=== PATIENT | male | born 1965 | race African-American/Black ===

== ENCOUNTER 2020-02-07 15:28 | Inpatient (IN) | payer OTHER ==
[~2020-02-07] VITALS: Ht 182.9 cm; Wt 78.4 kg
[2020-02-07] MEDS ORDERED: ASPIRIN CHEWABLE 81 MG TABLET. PO ONE (16:00)
--- NOTE | 2020-02-07 16:12 | PHYS DOC ---
Past Medical History Past Medical History: No Pertinent History Past Surgical History: Other Additional Past Surgical Histo: hernia surgery x2 Smoking Status: Current Every Day Smoker Additional Information: 1 ppd Alcohol Use: Occasionally General Adult EDM: Chief Complaint: CHEST PAIN HPI: HPI: Patient is a 54-year-old male smoker who presents with 2-day history of hemoptysis. He also complains of sharp right-sided chest pain that radiates to his back. He states it is worse when he takes a deep breath. He denies any fever chills or sweats. He said no nausea or vomiting. He states he has never had hemoptysis before. He states he is not coughing up clots but more dark pink sputum. He states the worst of it seemed to be last night but he is continued to have some today. He has not taken anything at home to alleviate the pain. [] Review of Systems: Review of Systems: Constitutional: Denies fever or chills. [] Eyes: Denies change in visual acuity. [] HENT: Denies nasal congestion or sore throat. [] Respiratory: Per HPI [] Cardiovascular: Denies chest pain or edema. [] GI: Denies abdominal pain, nausea, vomiting, bloody stools or diarrhea. [] : Denies dysuria. [] Musculoskeletal: Denies back pain or joint pain. [] Integument: Denies rash. [] Neurologic: Denies headache, focal weakness or sensory changes. [] Endocrine: Denies polyuria or polydipsia. [] Lymphatic: Denies swollen glands. [] Psychiatric: Denies depression or anxiety. [] Heart Score: Risk Factors: Risk Factors: DM, Current or recent (<one month) smoker, HTN, HLP, family history of CAD, obesity. Risk Scores: Score 0 - 3: 2.5% MACE over next 6 weeks - Discharge Home Score 4 - 6: 20.3% MACE over next 6 weeks - Admit for Clinical Observation Score 7 - 10: 72.7% MACE over next 6 weeks - Early Invasive Strategies Current Medications: Current Medications Medications (Trade) Dose Ordered Sig/Ari Start Time Stop Time Status Last Admin Dose Admin Aspirin (Aspirin Chewable) 324 mg 1X ONCE 02/07/20 16:00 02/07/20 16:01 DC 02/07/20 16:10 324 MG Allergies: Allergies: Allergies Coded Allergies Type Severity Reaction Last Updated Verified Penicillins Allergy Unknown states unknown 02/07/20 Yes Physical Exam: PE: Constitutional: Well developed, well nourished, no acute distress, non-toxic appearance. [] HENT: Normocephalic, atraumatic, bilateral external ears normal, oropharynx moist, no oral exudates, nose normal. [] Eyes: PERRLA, EOMI, conjunctiva normal, no discharge. [] Neck: Normal range of motion, no tenderness, supple, no stridor. [] Cardiovascular:Heart rate regular rhythm, no murmur [] Lungs & Thorax: Bilateral breath sounds clear to auscultation [] Abdomen: Bowel sounds normal, soft, no tenderness, no masses, no pulsatile masses. [] Skin: Warm, dry, no erythema, no rash. [] Back: No tenderness, no CVA tenderness. [] Extremities: No tenderness, no cyanosis, no clubbing, ROM intact, no edema. [] Neurologic: Alert and oriented X 3, normal motor function, normal sensory function, no focal deficits noted. [] Psychologic: Anxious. [] Current Patient Data: Vital Signs: Vital Signs Date Time Temp Pulse Resp B/P (MAP) Pulse Ox O2 Delivery O2 Flow Rate FiO2 02/07/20 15:32 98.7 101 28 118/72 (87) 96 Room Air 98.7 EKG: EKG: EKG: Sinus tachycardia rate of [address]-T changes [] Radiology/Procedures: Radiology/Procedures: []REASON: Hemoptysis PROCEDURE: CT ANGIOGRAPHY CHEST CTA Chest with contrast: Clinical History: Reason: Hemoptysis Axial helical images of the chest were obtained after the administration of 100 cc of IV Omni 350 and timed appropriately and arterial study. Conventional axial reconstruction was performed in addition to coronal, sagittal and bilateral oblique MIP (maximum intensity projection). FINDINGS: There are no filling defects to suggest pulmonary embolism. There is an irregular thick-walled mass in the right upper lobe anterior laterally that measures 9.4 x 4.1 cm. There is diffuse emphysematous changes throughout the peripheral lungs and there is diffuse groundglass opacities in the right middle lobe and there is patchy groundglass opacities in the right upper lobe. There is only mild groundglass opacities in the right lower lobe. There is a large mass lymph node complex involving the right mediastinum just above the right hilum that continues upward along the pelvic trachea on the right. This mass lymph node complex measures 12 cm x 4 cm x 5 cm. There are numerous additional mildly enlarged lymph nodes in the mediastinum and right hilum. The thoracic aorta appears normal. Impression: 1. No evidence of pulmonary embolism. 2. Large thick-walled cavitary lesion in the right upper lobe is suspicious for primary squamous cell carcinoma. 3. Surrounding groundglass opacities and patchy opacities throughout the right upper lobe and some groundglass opacities in the right lower lobe are nonspecific and could be secondary to pulmonary edema or aspiration or lymphangitic spread of cancer. 4. Marked lymphadenopathy with a large right-sided mass lymph node complex which continues from the right hilum into the mediastinum to just below the thoracic inlet on the right. Course & Med Decision Making: Course & Med Decision Making Pertinent Labs and Imaging studies reviewed. (See chart for details) [ED course: Evaluation reveals a 54-year-old male with new onset hemoptysis. CT scan revealed a large cavitary lung mass consistent with squamous cell carcinoma. I spent a long time discussing with the patient and his the findings and that we would need to admit for further diagnostic studies and a plan if this happened to be a cancer. Patient and his voiced understanding will admit to the hospitalist service.] Avinash Disclaimer: Avinash Disclaimer: This electronic medical record was generated, in whole or in part, using a voice recognition dictation system. Departure Departure Impression: Primary Impression: Hemoptysis Additional Impression: Lung mass Disposition: ADMITTED INPATIENT Admitting Physician: HIMS Condition: STABLE Referrals: NO PCP (PCP) Justicifation of Admission Dx: Justifications for Admission: Justification of Admission Dx: Yes Comments: Hemoptysis new lung mass GINA COOPER DO Feb 07, 2020 16:12
[2020-02-07 16:39] LABS: BASO # 0.1 x10^3/uL (0.0-0.2); BASO % 1 % (0-3); EOS # 0.6 x10^3/uL (0.0-0.7); EOS % 6 % (0-3); HEMATOCRIT 33.7 % (39.0-53.0); LYMPH # 1.8 x10^3/uL (1.0-4.8); LYMPH % 18 % (24-48); MEAN CORPUSCULAR HEMOGLOBIN 27 pg (25-35); MEAN CORPUSCULAR HGB CONC 33 g/dL (31-37); MEAN CORPUSCULAR VOLUME 82 fL (79-100); MONO # 0.8 x10^3/uL (0.0-1.1); MONO % 8 % (0-9); NEUT # 6.6 x10^3/uL (1.8-7.7); NEUT % 67 % (31-73); PLATELET COUNT 358 x10^3/uL (140-400); RED BLOOD COUNT 4.11 x10^6/uL (4.30-5.70); RED CELL DISTRIBUTION WIDTH 15.4 % (11.5-14.5); WHITE BLOOD COUNT 9.9 x10^3/uL (4.0-11.0)
[2020-02-07 16:50] LABS: CALCIUM 8.4 mg/dL (8.5-10.1); GFR 93.9; POTASSIUM 4.2 mmol/L (3.5-5.1)
[2020-02-07 16:56] LABS: ALBUMIN 3.2 g/dL (3.4-5.0); ALBUMIN/GLOBULIN RATIO 0.6 (1.0-1.7); TOTAL BILIRUBIN 0.5 mg/dL (0.2-1.0); TOTAL PROTEIN 8.2 g/dL (6.4-8.2)
[2020-02-07] MEDS ORDERED: IOHEXOL 350 MG/ML 100 ML VIAL. IV ONE (17:15)
--- NOTE | 2020-02-07 17:45 | RAD ---
CTA Chest with contrast: Clinical History: Reason: Hemoptysis Axial helical images of the chest were obtained after the administration of 100 cc of IV Omni 350 and timed appropriately and arterial study. Conventional axial reconstruction was performed in addition to coronal, sagittal and bilateral oblique MIP (maximum intensity projection). FINDINGS: There are no filling defects to suggest pulmonary embolism. There is an irregular thick-walled mass in the right upper lobe anterior laterally that measures 9.4 x 4.1 cm. There is diffuse emphysematous changes throughout the peripheral lungs and there is diffuse groundglass opacities in the right middle lobe and there is patchy groundglass opacities in the right upper lobe. There is only mild groundglass opacities in the right lower lobe. There is a large mass lymph node complex involving the right mediastinum just above the right hilum that continues upward along the pelvic trachea on the right. This mass lymph node complex measures 12 cm x 4 cm x 5 cm. There are numerous additional mildly enlarged lymph nodes in the mediastinum and right hilum. The thoracic aorta appears normal. Impression: 1. No evidence of pulmonary embolism. 2. Large thick-walled cavitary lesion in the right upper lobe is suspicious for primary squamous cell carcinoma. 3. Surrounding groundglass opacities and patchy opacities throughout the right upper lobe and some groundglass opacities in the right lower lobe are nonspecific and could be secondary to pulmonary edema or aspiration or lymphangitic spread of cancer. 4. Marked lymphadenopathy with a large right-sided mass lymph node complex which continues from the right hilum into the mediastinum to just below the thoracic inlet on the right. End impression PQRS Compliance Statement: One or more of the following individualized dose reduction techniques were utilized for this examination: 1. Automated exposure control 2. Adjustment of the mA and/or kV according to patient size 3. Use of iterative reconstruction technique Electronically signed by: Vj Blair III, MD (02/07/2020 5:42 PM) [id number]
[2020-02-07 17:46] LABS: PROTHROMBIN TIME PATIENT 13.8 SEC (11.7-14.0)
[2020-02-07] MEDS ORDERED: ONDANSETRON PF 4 MG/2 ML VIAL. IV PRN ×2 (18:15→21:15)
--- NOTE | 2020-02-07 20:15 | NUR ---
The patient, SAMIA GARCIA, 54 y/o, M admitted by CORINNA HERNANDEZ MD, was given written information regarding hospital policies, unit procedures and contact persons. Patient was transferred to room via ED bed, assisted by ED staff member. Valuables were checked and noted. Patient is currently sitting in bed watching TV. Patient was given soup and a box lunch per patient's request at this time. This RN will continue to monitor the patient at this time This RN called and informed Dr. Hernandez of COVID-19 symptom screen result in the admission questions. MD ordered for the patient to be transferred to [address] [place] [address] and tested for COVID-19 at this time. This RN will continue to monitor the patient until he is transferred to [address] [place] [address].
[2020-02-07] MEDS: IV NORMAL SALINE 1000ML BAG 1,000 ML IV SCH (20:32)
[2020-02-07 21:00] VITALS: BP 136/53
[2020-02-07] MEDS ORDERED: ENOXAPARIN 40 MG/0.4 ML SYRINGE. SQ SCH (21:30)
--- NOTE | 2020-02-07 22:30 | NUR ---
Admit from 5th floor room 516 to 6south room 658 to r/o Covid. A/O x 4. Steady gait. VSS. Orientated to room and call light. Reviewed POC to include IVF, Covid Swab pending and Isolation precautions. Verbalized understanding. Resting in bed with call light at hand.
[2020-02-07 23:10] VITALS: BP 114/73
[2020-02-08] MEDS: IV NORMAL SALINE 1000ML BAG 1,000 ML IV SCH ×2 (03:01→09:10)
[2020-02-08] MEDS: fentaNYL PF VIAL 100 MCG/2 ML VIAL IV PRN (03:36)
[2020-02-08 03:57] VITALS: BP 133/67
[2020-02-08 04:08] LABS: BASO # 0.1 x10^3/uL (0.0-0.2); BASO % 1 % (0-3); EOS # 0.7 x10^3/uL (0.0-0.7); EOS % 7 % (0-3); HEMATOCRIT 29.7 % (39.0-53.0); HEMOGLOBIN 9.7 g/dL (13.0-17.5); LYMPH # 1.7 x10^3/uL (1.0-4.8); LYMPH % 18 % (24-48); MEAN CORPUSCULAR HEMOGLOBIN 27 pg (25-35); MEAN CORPUSCULAR HGB CONC 33 g/dL (31-37); MEAN CORPUSCULAR VOLUME 82 fL (79-100); MONO % 10 % (0-9); NEUT # 6.1 x10^3/uL (1.8-7.7); NEUT % 64 % (31-73); PLATELET COUNT 328 x10^3/uL (140-400); RED BLOOD COUNT 3.63 x10^6/uL (4.30-5.70); RED CELL DISTRIBUTION WIDTH 15.5 % (11.5-14.5); WHITE BLOOD COUNT 9.6 x10^3/uL (4.0-11.0)
[2020-02-08 04:33] LABS: ALBUMIN 2.7 g/dL (3.4-5.0); ALBUMIN/GLOBULIN RATIO 0.6 (1.0-1.7); CALCIUM 7.9 mg/dL (8.5-10.1); CREATININE 0.9 mg/dL (0.7-1.3); POTASSIUM 3.9 mmol/L (3.5-5.1); TOTAL BILIRUBIN 0.3 mg/dL (0.2-1.0)
[2020-02-08 07:15] VITALS: BP 121/68
--- NOTE | 2020-02-08 07:23 | EKG ---
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
--- NOTE | 2020-02-08 08:01 | EKG ---
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
--- NOTE | 2020-02-08 08:32 | PDOC1 ---
History and Physical Date of Admission Date of Admission DATE: 02/08/20 TIME: 08:32 Identification/Chief Complaint Chief Complaint Hemoptysis Source Source: Patient History of Present Illness History of Present Illness Mr Sarah is a 54 yo M w/ PMHx smoker 40+ years who came to ED on 02/07/2020 overnight c/o sharp right-sided chest pain, which radiates to the back. He rates it 8/10 and progressive over the past 4 days prior to presentation. He has some associated shortness of breath and cough that is blood specked and now with fiorella hemoptysis. He had no fever, no chills, no sick contacts. With above concerns a CTPA was performed in ED which revealed a large thick wall cavitary lesion in right upper lobe with a pleural based mass as well as right hilar adenopathy extending into the mediastinum. Also noted with extensive ground glass infiltrates in the right lung. There is evidence of extensive emphysema in the right upper lobe and bilateral lungs. BMP within normal limits WBC 9.9, hemoglobin 11, dropped to 9.7 overnight. Platelets 358, albumin 2.7, INR 1.1. EKG sinus tachycardia rate of [address]-T changes COVID 19 swab obtained in ED and admitted for further care. Past Medical History Cardiovascular: No pertinent hx Past Surgical History Past Surgical History: Hernia Repair (x2) Family History Family History: High Cholestrol, Hypertension Social History Smoke: 1 pack per day ALCOHOL: none Drugs: None Current Problem List Problem List Problems Medical Problems: (1) Chest pain Status: Acute Current Medications Current Medications Current Medications Aspirin (Aspirin Chewable) 324 mg 1X ONCE PO Last administered on 02/07/20at 16:10; Start 02/07/20 at 16:00; Stop 02/07/20 at 16:01; Status DC Iohexol (Omnipaque 350 Mg/ml) 100 ml 1X ONCE IV Last administered on 02/07/20at 17:25; Start 02/07/20 at 17:15; Stop 02/07/20 at 17:16; Status DC Ondansetron HCl (Zofran) 4 mg PRN Q8HRS PRN IV NAUSEA/VOMITING; Start 02/07/20 at 18:15; Stop 02/07/20 at 21:14; Status DC Fentanyl Citrate (Fentanyl 2ml Vial) 50 mcg PRN Q1HR PRN IV PAIN Last administered on 02/08/20at 03:36; Start 02/07/20 at 18:15 Sodium Chloride 1,000 ml @ 125 mls/hr Q8H IV Last administered on 02/08/20at 03:01; Start 02/07/20 at 18:05; Stop 02/08/20 at 18:04 Ondansetron HCl (Zofran) 4 mg PRN Q4HRS PRN IV NAUSEA/VOMITING 1ST CHOICE; Start 02/07/20 at 21:15 Guaifenesin (Robitussin Dm) 10 ml PRN Q6HRS PRN PO COUGH; Start 02/07/20 at 21:15 Enoxaparin Sodium (Lovenox 40mg Syringe) 40 mg QHS SQ Last administered on 02/07/20at 23:19; Start 02/07/20 at 21:30 Allergies Allergies: Coded Allergies: Penicillins (Verified Allergy, Intermediate, 02/07/20) ROS General: YES: Fatigue, Malaise; No: Chills, Night Sweats, Appetite, Other PSYCHOLOGICAL ROS: No: Anxiety, Behavioral Disorder, Concentration difficultie, Decreased libido, Depression, Disorientation, Hallucinations, Hostility, Irritablity, Memory difficulties, Mood Swings, Obsessive thoughts, Physical abuse, Sexual abuse, Sleep disturbances, Suicidal ideation, Other Eyes: No Blurry vision, No Decreased vision, No Double vision, No Dry eyes, No Excessive tearing, No Eye Pain, No Itchy Eyes, No Loss of vision, No Ph otophobia, No Scotomata, No Uses contacts, No Uses glasses, No Other HEENT: No: Heacaches, Visual Changes, Hearing change, Nasal congestion, Nasal discharge, Oral lesions, Sinus pain, Sore Throat, Epistaxis, Sneezing, Snoring, Tinnitus, Vertigo, Vocal changes, Other ALLERGY AND IMMUNOLOGY: No: Hives, Insect Bite Sensitivity, Itchy/Watery Eyes, Nasal Congestion, Post Nasal Drip, Seasonal Allergies, Other Hematological and Lymphatic: No: Bleeding Problems, Blood Clots, Blood Transfusions, Brusing, Night Sweats, Pallor, Swollen Lymph Nodes, Other ENDOCRINE: No: Breast Changes, Galactorrhea, Hair Pattern Changes, Hot Flashes, Malaise/lethargy, Mood Swings, Palpitations, Polydipsia/polyuria, Skin Changes, Temperature Intolerance, Unexpected Weight Changes, Other Breast: No New/Changing Breast Lumps, No Nipple changes, No Nipple discharge, No Other Respiratory: YES: Cough, Hemoptysis, Pleuritic Pain, Shortness of breath, SOB with excertion, Sputum Changes, Tachypnea, Wheezing; No: Orthopnea, Stridor, Other Cardiovascular: yes Chest Pain; No Palpitations, No Orthopnea, No Paroxysmal Noc. Dyspnea, No Edema, No Lt Headedness, No Other Gastrointestinal: No Nausea, No Vomiting, No Abdominal Pain, No Diarrhea, No Constipation, No Melena, No Hematochezia, No Other Genitourinary: No Dysuria, No Frequency, No Incontinence, No Hematuria, No Retention, No Discharge, No Urgency, No Pain, No Flank Pain, No Other, No , No , No , No , No , No , No Musculoskeletal: No Gait Disturbance, No Joint Pain, No Joint Stiffness, No Joint Swelling, No Muscle Pain, No Muscular Weakness, No Pain In:, No Swelling In:, No Other Neurological: No Behavorial Changes, No Bowel/Bladder ControlChng, No Confusion, No Dizziness, No Gait Disturbance, No Headaches, No Impaired Coord/balance, No Memory Loss, No Numbness/Tingling, No Seizures, No Speech Problems, No Tremors, No Visual Changes, No Weakness, No Other Skin: No Dry Skin, No Eczema, No Hair Changes, No Lumps, No Mole Changes, No Mottling, No Nail Changes, No Pruritus, No Rash, No Skin Lesion Changes, No Other, No Acne Physical Exam General: Alert, Oriented X3, Cooperative, moderate distress HEENT: Atraumatic, PERRLA, EOMI, Mucous membr. moist/pink Lungs: Other (Diffuse scattered wheezes) Heart: S1S2, RRR, no thrills, no rubs, no gallops, no murmurs Abdomen: Normal bowel sounds, Soft, No tenderness, No hepatosplenomegaly, No masses Rectal Exam: not examined Extremities: No clubbing, No cyanosis, No edema, Normal pulses, No tenderness/swelling Skin: No rashes, No breakdown, No significant lesion Neuro: Normal gait, Normal speech, Strength at 5/5 X4 ext, Normal tone, Sensation intact, Cranial nerves 3-12 NL, Reflexes 2+ Psych/Mental Status: Mental status NL, Mood NL Vitals Vitals Vital Signs Date Time Temp Pulse Resp B/P (MAP) Pulse Ox O2 Delivery O2 Flow Rate FiO2 02/08/20 07:15 98.9 82 20 121/68 (85) 96 Room Air 98.9 Labs Labs Laboratory Tests Test 02/07/20 16:24 02/08/20 03:20 White Blood Count 9.9 x10^3/uL (4.0-11.0) 9.6 x10^3/uL (4.0-11.0) Red Blood Count 4.11 x10^6/uL (4.30-5.70) 3.63 x10^6/uL (4.30-5.70) Hemoglobin 11.0 g/dL (13.0-17.5) 9.7 g/dL (13.0-17.5) Hematocrit 33.7 % (39.0-53.0) 29.7 % (39.0-53.0) Mean Corpuscular Volume 82 fL (79-100) 82 fL (79-100) Mean Corpuscular Hemoglobin 27 pg (25-35) 27 pg (25-35) Mean Corpuscular Hemoglobin Concent 33 g/dL (31-37) 33 g/dL (31-37) Red Cell Distribution Width 15.4 % (11.5-14.5) 15.5 % (11.5-14.5) Platelet Count 358 x10^3/uL (140-400) 328 x10^3/uL (140-400) Neutrophils (%) (Auto) 67 % (31-73) 64 % (31-73) Lymphocytes (%) (Auto) 18 % (24-48) 18 % (24-48) Monocytes (%) (Auto) 8 % (0-9) 10 % (0-9) Eosinophils (%) (Auto) 6 % (0-3) 7 % (0-3) Basophils (%) (Auto) 1 % (0-3) 1 % (0-3) Neutrophils # (Auto) 6.6 x10^3/uL (1.8-7.7) 6.1 x10^3/uL (1.8-7.7) Lymphocytes # (Auto) 1.8 x10^3/uL (1.0-4.8) 1.7 x10^3/uL (1.0-4.8) Monocytes # (Auto) 0.8 x10^3/uL (0.0-1.1) 1.0 x10^3/uL (0.0-1.1) Eosinophils # (Auto) 0.6 x10^3/uL (0.0-0.7) 0.7 x10^3/uL (0.0-0.7) Basophils # (Auto) 0.1 x10^3/uL (0.0-0.2) 0.1 x10^3/uL (0.0-0.2) Prothrombin Time 13.8 SEC (11.7-14.0) Prothromb Time International Ratio 1.1 (0.8-1.1) Sodium Level 140 mmol/L (136-145) 142 mmol/L (136-145) Potassium Level 4.2 mmol/L (3.5-5.1) 3.9 mmol/L (3.5-5.1) Chloride Level 104 mmol/L (98-107) 107 mmol/L (98-107) Carbon Dioxide Level 29 mmol/L (21-32) 28 mmol/L (21-32) Anion Gap 7 (6-14) 7 (6-14) Blood Urea Nitrogen 11 mg/dL (8-26) 11 mg/dL (8-26) Creatinine 1.0 mg/dL (0.7-1.3) 0.9 mg/dL (0.7-1.3) Estimated GFR (Cockcroft-Gault) 93.9 106.0 BUN/Creatinine Ratio 11 (6-20) 12 (6-20) Glucose Level 94 mg/dL (70-99) 121 mg/dL (70-99) Calcium Level 8.4 mg/dL (8.5-10.1) 7.9 mg/dL (8.5-10.1) Total Bilirubin 0.5 mg/dL (0.2-1.0) 0.3 mg/dL (0.2-1.0) Aspartate Amino Transf (AST/SGOT) 15 U/L (15-37) 10 U/L (15-37) Alanine Aminotransferase (ALT/SGPT) 14 U/L (16-63) 11 U/L (16-63) Alkaline Phosphatase 98 U/L (46-116) 85 U/L (46-116) Troponin I Quantitative < 0.017 ng/mL (0.000-0.055) VX-Nhu-Q-Type Natriuretic Peptide 35 pg/mL (0-124) Total Protein 8.2 g/dL (6.4-8.2) 7.0 g/dL (6.4-8.2) Albumin 3.2 g/dL (3.4-5.0) 2.7 g/dL (3.4-5.0) Albumin/Globulin Ratio 0.6 (1.0-1.7) 0.6 (1.0-1.7) Laboratory Tests Test 02/07/20 16:24 02/08/20 03:20 White Blood Count 9.9 x10^3/uL (4.0-11.0) 9.6 x10^3/uL (4.0-11.0) Red Blood Count 4.11 x10^6/uL (4.30-5.70) 3.63 x10^6/uL (4.30-5.70) Hemoglobin 11.0 g/dL (13.0-17.5) 9.7 g/dL (13.0-17.5) Hematocrit 33.7 % (39.0-53.0) 29.7 % (39.0-53.0) Mean Corpuscular Volume 82 fL (79-100) 82 fL (79-100) Mean Corpuscular Hemoglobin 27 pg (25-35) 27 pg (25-35) Mean Corpuscular Hemoglobin Concent 33 g/dL (31-37) 33 g/dL (31-37) Red Cell Distribution Width 15.4 % (11.5-14.5) 15.5 % (11.5-14.5) Platelet Count 358 x10^3/uL (140-400) 328 x10^3/uL (140-400) Neutrophils (%) (Auto) 67 % (31-73) 64 % (31-73) Lymphocytes (%) (Auto) 18 % (24-48) 18 % (24-48) Monocytes (%) (Auto) 8 % (0-9) 10 % (0-9) Eosinophils (%) (Auto) 6 % (0-3) 7 % (0-3) Basophils (%) (Auto) 1 % (0-3) 1 % (0-3) Neutrophils # (Auto) 6.6 x10^3/uL (1.8-7.7) 6.1 x10^3/uL (1.8-7.7) Lymphocytes # (Auto) 1.8 x10^3/uL (1.0-4.8) 1.7 x10^3/uL (1.0-4.8) Monocytes # (Auto) 0.8 x10^3/uL (0.0-1.1) 1.0 x10^3/uL (0.0-1.1) Eosinophils # (Auto) 0.6 x10^3/uL (0.0-0.7) 0.7 x10^3/uL (0.0-0.7) Basophils # (Auto) 0.1 x10^3/uL (0.0-0.2) 0.1 x10^3/uL (0.0-0.2) Prothrombin Time 13.8 SEC (11.7-14.0) Prothromb Time International Ratio 1.1 (0.8-1.1) Sodium Level 140 mmol/L (136-145) 142 mmol/L (136-145) Potassium Level 4.2 mmol/L (3.5-5.1) 3.9 mmol/L (3.5-5.1) Chloride Level 104 mmol/L (98-107) 107 mmol/L (98-107) Carbon Dioxide Level 29 mmol/L (21-32) 28 mmol/L (21-32) Anion Gap 7 (6-14) 7 (6-14) Blood Urea Nitrogen 11 mg/dL (8-26) 11 mg/dL (8-26) Creatinine 1.0 mg/dL (0.7-1.3) 0.9 mg/dL (0.7-1.3) Estimated GFR (Cockcroft-Gault) 93.9 106.0 BUN/Creatinine Ratio 11 (6-20) 12 (6-20) Glucose Level 94 mg/dL (70-99) 121 mg/dL (70-99) Calcium Level 8.4 mg/dL (8.5-10.1) 7.9 mg/dL (8.5-10.1) Total Bilirubin 0.5 mg/dL (0.2-1.0) 0.3 mg/dL (0.2-1.0) Aspartate Amino Transf (AST/SGOT) 15 U/L (15-37) 10 U/L (15-37) Alanine Aminotransferase (ALT/SGPT) 14 U/L (16-63) 11 U/L (16-63) Alkaline Phosphatase 98 U/L (46-116) 85 U/L (46-116) Troponin I Quantitative < 0.017 ng/mL (0.000-0.055) CE-Rlh-H-Type Natriuretic Peptide 35 pg/mL (0-124) Total Protein 8.2 g/dL (6.4-8.2) 7.0 g/dL (6.4-8.2) Albumin 3.2 g/dL (3.4-5.0) 2.7 g/dL (3.4-5.0) Albumin/Globulin Ratio 0.6 (1.0-1.7) 0.6 (1.0-1.7) Images Images CTPA: There are no filling defects to suggest pulmonary embolism. There is an irregular thick-walled mass in the right upper lobe anterior laterally that measures 9.4 x 4.1 cm. There is diffuse emphysematous changes throughout the peripheral lungs and there is diffuse groundglass opacities in the right middle lobe and there is patchy groundglass opacities in the right upper lobe. There is only mild groundglass opacities in the right lower lobe. There is a large mass lymph node complex involving the right mediastinum just above the right hilum that continues upward along the pelvic trachea on the right. This mass lymph node complex measures 12 cm x 4 cm x 5 cm. There are numerous additional mildly enlarged lymph nodes in the mediastinum and right hilum. The thoracic aorta appears normal. Impression: 1. No evidence of pulmonary embolism. 2. Large thick-walled cavitary lesion in the right upper lobe is suspicious for primary squamous cell carcinoma. 3. Surrounding groundglass opacities and patchy opacities throughout the right upper lobe and some groundglass opacities in the right lower lobe are nonspecific and could be secondary to pulmonary edema or aspiration or lymphangitic spread of cancer. 4. Marked lymphadenopathy with a large right-sided mass lymph node complex which continues from the right hilum into the mediastinum to just below the thoracic inlet on the right. VTE Prophylaxis Ordered VTE Prophylaxis Devices: No VTE Pharmacological Prophylaxi: Yes Assessment/Plan Assessment/Plan A/P: Hemoptysis - likely multifactorial with acute bronchitis and RUL cavitary mass concerning for possible malignancy. Consulted pulm, will order inhalers. F/u COVID 19 test Right upper lobe cavitary mass and also pleural based - likely cause of pain, concerning for malignancy. Given his urgency to want to discharge will d/c IR for biopsy and rad onc and heme onc Extensive ground glass infiltrates - potentially stage 3/4 lung cancer. COVID 19 test pending Likely underlying chronic obstructive pulmonary disease - likely 2/2 smoking. Inhalers prn Emphysema on CT - d/w pulm to have CT abdomen/pelvis to assess for lymphadenopathy or metastatic disease to decrease risk on biopsy Anemia - likely related to chronic disease. will check iron studies. F/u CBC Severe protein calorie malnutrition - likely related to above. Director Of Online Education to see FEN - General diet PPX - lovenox, will hold for possible biopsy FULL CODE Dispo - inpatient 2 midnights Justicifation of Admission Dx: Justifications for Admission: Justification of Admission Dx: Yes CORINNA CALDERÓN MD Feb 08, 2020 08:32
[2020-02-08 11:10] VITALS: BP 125/71
--- NOTE | 2020-02-08 11:41 | CONS ---
DATE OF CONSULTATION: PULMONARY CONSULTATION ATTENDING PHYSICIAN: Reynold Hernandez MD REASON FOR CONSULTATION: Hemoptysis, lung mass. HISTORY OF PRESENT ILLNESS: The patient is a 54-year-old male who smoked for 40 years. He came in with sharp right-sided chest pain, which radiates to the back. He has some shortness of breath. He had no cough, fever, no chills, no chest pains. He had having this hemoptysis for the last 3-4 days. The patient was seen in the Emergency Room. CT chest was performed, which was reviewed by me. The patient has a mass large thick wall cavitary in right upper lobe. There is also pleural based mass as well. There is right hilar adenopathy extending into the mediastinum. There is extensive ground glass infiltrates in the right lung. There is evidence of emphysema in the right upper lobe. I have been asked to see him for further evaluation. He has some weight loss. PAST MEDICAL HISTORY: Significant for suspected COPD, everyday smoker for at least 40 years. PAST SURGICAL HISTORY: Hernia surgery. SOCIAL HISTORY: Long history of tobacco use for at least 40 years with evidence of emphysema on CT. MEDICATIONS: Reviewed as listed in the MRAD. REVIEW OF SYSTEMS: Twelve-point system obtained. Pertinent positives discussed in my history of present illness. PHYSICAL EXAMINATION: VITAL SIGNS: Reviewed. Pulse ox 96% on room air. GENERAL: Visual exam done due to COVID-19 suspicion. No obvious respiratory distress. SKIN: No rash. EXTREMITIES: No leg edema. LABORATORY DATA: Reviewed. White cell count 9.6, hemoglobin 9.7 and platelets are 328. BUN and creatinine normal. INR 1.1. IMPRESSION: 1. Hemoptysis along with right upper lobe cavitary mass and also pleural based mass along with right hilar adenopathy with extension into the mediastinum and extensive ground glass infiltrates. Overall, findings are highly suspicious for stage 3 lung cancer, could be stage 4. 2. Suspected underlying chronic obstructive pulmonary disease from 40 years of tobacco use. 3. Chest wall pain secondary to the pleural based mass. 4. Evidence of bullous emphysema in the right upper lobe. RECOMMENDATIONS: 1. I have discussed with Dr. Hernandez and the patient. At this time, a biopsy of the pleural based lesion in the right upper lobe could be safe as it can avoid going into the lung. He does carry risk of pneumothorax due to the bullous emphysema seen in the right upper lobe. 2. We will also obtain a CT abdomen and pelvis to look for any distal lesions, which would be also safer for biopsy. 3. Hold Lovenox. 4. Consult Medical Oncology and Radiation Oncology and they can follow post-biopsy. 5. P.r.n. bronchodilators. 6. Discussed with Dr. Hernandez and will follow along with you. I would also add empiric antibiotic for suspected postobstructive pneumonia. TEODORA COTTER MD DR: ADARSH/rehan JOB#: [id number] / [id number]
[2020-02-08] MEDS ORDERED: IOHEXOL 300 MG/ML 100ML VIAL. IV ONE (11:45)
[2020-02-08] MEDS ORDERED: CONTRAST GIVEN. MC PRN (11:45)
[2020-02-08] MEDS ORDERED: IOHEXOL 240 MG/ML 50ML VIAL. PO ONE (11:45)
[2020-02-08] MEDS: HYDROcodone/APAP 5/325MG 1 TAB TABLET PO PRN ×3 (12:08→23:46)
[2020-02-08] MEDS: guaiFENesin DM 200MG/20MG 10 ML SYRUP PO PRN (12:08)
--- NOTE | 2020-02-08 15:10 | RAD ---
EXAM: CT ABDOMEN/PELVIS WITH CONTRAST. HISTORY: Staging lung cancer. TECHNIQUE: Computed tomography of the abdomen and pelvis was performed after the intravenous administration of iodinated contrast. One or more of the following individualized dose reduction techniques were utilized for this examination: 1. Automated exposure control. 2. Adjustment of the mA and/or kV according to patient size. 3. Use of iterative reconstruction technique. COMPARISON: 02/07/2020. FINDINGS: Lung windows through the visualized portions of the bases reveal groundglass opacities in the right lung base associated with the large right upper lobe lesion. Refer to recent CT. A soft tissue density 4 mm nodule in the right middle lobe on image one is indeterminate.. Bone windows reveal no suspicious lesions. A 5 mm hypoattenuating lesion within the right hepatic lobe on image 22 is indeterminate in this setting. There are no definitively suspicious hepatic lesions. The gallbladder, pancreas, spleen and adrenal glands are unremarkable. A cyst medially in the left kidney measures 5.9 x 4.4 cm and appears benign. The right kidney is unremarkable. There are no pathologically enlarged lymph nodes. The appendix is not inflamed. There is no small bowel obstruction. Sigmoid diverticulosis is moderate. Small umbilical and left inguinal hernias containing only fat. IMPRESSION: 1. One 5 mm hypoattenuating lesion in the right hepatic lobe is indeterminate in this setting but statistically most likely benign. MRI could further characterize, though definitive characterization may not be possible at this small size. 2. No other evidence of metastatic disease inferior to the diaphragm. 3. Small umbilical and left inguinal hernias contain only fat. Electronically signed by: Nichole Chatman MD (02/08/2020 3:07 PM) [id number]
[2020-02-08 15:20] VITALS: BP 121/71
--- NOTE | 2020-02-08 17:16 | NUR ---
SW following. Reviewed chart and discussed with RN. Pt from home, room air, regular diet. No PT/OT needs. Pt on IV Fentanyl. Pt COVID pending. SW to follow as needed.
[2020-02-08 19:00] VITALS: BP 129/70
--- NOTE | 2020-02-08 21:45 | PDOC2 ---
CONSULT Date of Consult Date of Consult DATE: 02/08/20 TIME: 21:24 Reason for Consult Reason for Consult: Lung mass Referring Physician Referring Physician: Dr Hernandez Identification/Chief Complaint Chief Complaint Hemoptysis Problems: (1) Hemoptysis (2) Lung mass Source Source: Chart review, Patient History of Present Illness Reason for Visit: Kahlil Sarah is a 54 year old with hx pertinent for tobacco use who has been admitted for further evaluation and management of hemoptysis. He reports having right sided pleuritic chest pain that started over the past week. He notes that pain worsens with deep breathing and coughing. He also notes hemoptysis with b lood stained sputum in recent days. He denies weight loss, fatigue, headache, vision issues, abdominal pain, back pain. He notes chronic exertional dyspnea. A CTA was performed in ED which revealed a large thick wall cavitary lesion in right upper lobe with a pleural based mass as well as right hilar adenopathy extending into the mediastinum. Also noted with extensive ground glass infiltrates in the right lung. There is evidence of extensive emphysema in the right upper lobe and bilateral lungs. Oncology has been consulted due to concern for cancer Past Medical History Cardiovascular: No pertinent hx Past Surgical History Past Surgical History: Hernia Repair (x2) Family History Family History: High Cholestrol, Hypertension Social History 1 pack per day ALCOHOL: none Drugs: None Current Problem List Problem List Problems Medical Problems: (1) Chest pain Status: Acute (2) Hemoptysis Status: Acute (3) Lung mass Status: Acute Current Medications Current Medications Current Medications Aspirin (Aspirin Chewable) 324 mg 1X ONCE PO Last administered on 02/07/20at 16:10; Start 02/07/20 at 16:00; Stop 02/07/20 at 16:01; Status DC Iohexol (Omnipaque 350 Mg/ml) 100 ml 1X ONCE IV Last administered on 02/07/20at 17:25; Start 02/07/20 at 17:15; Stop 02/07/20 at 17:16; Status DC Ondansetron HCl (Zofran) 4 mg PRN Q8HRS PRN IV NAUSEA/VOMITING; Start 02/07/20 at 18:15; Stop 02/07/20 at 21:14; Status DC Fentanyl Citrate (Fentanyl 2ml Vial) 50 mcg PRN Q1HR PRN IV PAIN Last administered on 02/08/20at 03:36; Start 02/07/20 at 18:15 Sodium Chloride 1,000 ml @ 125 mls/hr Q8H IV Last administered on 02/08/20at 09:10; Start 02/07/20 at 18:05; Stop 02/08/20 at 14:08; Status DC Ondansetron HCl (Zofran) 4 mg PRN Q4HRS PRN IV NAUSEA/VOMITING 1ST CHOICE; Start 02/07/20 at 21:15 Guaifenesin (Robitussin Dm) 10 ml PRN Q6HRS PRN PO COUGH Last administered on 02/08/20at 12:08; Start 02/07/20 at 21:15 Enoxaparin Sodium (Lovenox 40mg Syringe) 40 mg QHS SQ Last administered on 02/07/20at 23:19; Start 02/07/20 at 21:30; Stop 02/08/20 at 11:27; Status DC Iohexol (Omnipaque 240 Mg/ml) 30 ml 1X ONCE PO Last administered on 02/08/20at 11:45; Start 02/08/20 at 11:45; Stop 02/08/20 at 11:46; Status DC Iohexol (Omnipaque 300 Mg/ml) 75 ml 1X ONCE IV Last administered on 02/08/20at 11:45; Start 02/08/20 at 11:45; Stop 02/08/20 at 11:46; Status DC Info (CONTRAST GIVEN -- Rx MONITORING) 1 each PRN DAILY PRN MC SEE COMMENTS; Start 02/08/20 at 11:45; Stop 02/10/20 at 11:44 Acetaminophen/ Hydrocodone Bitart (Lortab 5/325) 1 tab PRN Q4HRS PRN PO PAIN Last administered on 02/08/20at 18:15; Start 02/08/20 at 12:00 Allergies Allergies: Coded Allergies: Penicillins (Verified Allergy, Intermediate, 02/07/20) ROS General: No: Chills, Night Sweats PSYCHOLOGICAL ROS: No: Anxiety, Behavioral Disorder Eyes: No Blurry vision, No Decreased vision HEENT: No: Heacaches, Visual Changes ALLERGY AND IMMUNOLOGY: No: Nasal Congestion, Post Nasal Drip Hematological and Lymphatic: No: Bleeding Problems, Blood Clots ENDOCRINE: No: Malaise/lethargy, Mood Swings Respiratory: YES: Cough, Hemoptysis, Pleuritic Pain, Shortness of breath, Sputum Changes; No: Orthopnea, Stridor, Wheezing Cardiovascular: yes Chest Pain; No Palpitations Gastrointestinal: No Nausea, No Vomiting, No Abdominal Pain, No Diarrhea, No Constipation, No Melena, No Hematochezia Genitourinary: No Dysuria, No Flank Pain Musculoskeletal: No Gait Disturbance, No Joint Stiffness Neurological: Yes Dizziness; No Behavorial Changes Skin: No Dry Skin, No Nail Changes, No Rash Physical Exam General: Alert, Oriented X3 HEENT: Atraumatic, PERRLA Lungs: Clear to auscultation Heart: Regular rate Abdomen: Normal bowel sounds, Soft, No tenderness, No hepatosplenomegaly Extremities: No clubbing, No cyanosis Skin: No rashes, No breakdown Neuro: Normal gait, Normal speech Psych/Mental Status: Mental status NL MUSCULOSKELETAL: No swelling Vitals VITALS Vital Signs Date Time Temp Pulse Resp B/P (MAP) Pulse Ox O2 Delivery O2 Flow Rate FiO2 02/08/20 18:15 18 92 Room Air 02/08/20 15:20 98.1 95 121/71 (88) 98.1 Labs Labs Laboratory Tests Test 02/07/20 16:24 02/07/20 23:25 02/08/20 03:20 White Blood Count 9.9 x10^3/uL (4.0-11.0) 9.6 x10^3/uL (4.0-11.0) Red Blood Count 4.11 x10^6/uL (4.30-5.70) 3.63 x10^6/uL (4.30-5.70) Hemoglobin 11.0 g/dL (13.0-17.5) 9.7 g/dL (13.0-17.5) Hematocrit 33.7 % (39.0-53.0) 29.7 % (39.0-53.0) Mean Corpuscular Volume 82 fL (79-100) 82 fL (79-100) Mean Corpuscular Hemoglobin 27 pg (25-35) 27 pg (25-35) Mean Corpuscular Hemoglobin Concent 33 g/dL (31-37) 33 g/dL (31-37) Red Cell Distribution Width 15.4 % (11.5-14.5) 15.5 % (11.5-14.5) Platelet Count 358 x10^3/uL (140-400) 328 x10^3/uL (140-400) Neutrophils (%) (Auto) 67 % (31-73) 64 % (31-73) Lymphocytes (%) (Auto) 18 % (24-48) 18 % (24-48) Monocytes (%) (Auto) 8 % (0-9) 10 % (0-9) Eosinophils (%) (Auto) 6 % (0-3) 7 % (0-3) Basophils (%) (Auto) 1 % (0-3) 1 % (0-3) Neutrophils # (Auto) 6.6 x10^3/uL (1.8-7.7) 6.1 x10^3/uL (1.8-7.7) Lymphocytes # (Auto) 1.8 x10^3/uL (1.0-4.8) 1.7 x10^3/uL (1.0-4.8) Monocytes # (Auto) 0.8 x10^3/uL (0.0-1.1) 1.0 x10^3/uL (0.0-1.1) Eosinophils # (Auto) 0.6 x10^3/uL (0.0-0.7) 0.7 x10^3/uL (0.0-0.7) Basophils # (Auto) 0.1 x10^3/uL (0.0-0.2) 0.1 x10^3/uL (0.0-0.2) Prothrombin Time 13.8 SEC (11.7-14.0) Prothromb Time International Ratio 1.1 (0.8-1.1) Sodium Level 140 mmol/L (136-145) 142 mmol/L (136-145) Potassium Level 4.2 mmol/L (3.5-5.1) 3.9 mmol/L (3.5-5.1) Chloride Level 104 mmol/L (98-107) 107 mmol/L (98-107) Carbon Dioxide Level 29 mmol/L (21-32) 28 mmol/L (21-32) Anion Gap 7 (6-14) 7 (6-14) Blood Urea Nitrogen 11 mg/dL (8-26) 11 mg/dL (8-26) Creatinine 1.0 mg/dL (0.7-1.3) 0.9 mg/dL (0.7-1.3) Estimated GFR (Cockcroft-Gault) 93.9 106.0 BUN/Creatinine Ratio 11 (6-20) 12 (6-20) Glucose Level 94 mg/dL (70-99) 121 mg/dL (70-99) Calcium Level 8.4 mg/dL (8.5-10.1) 7.9 mg/dL (8.5-10.1) Total Bilirubin 0.5 mg/dL (0.2-1.0) 0.3 mg/dL (0.2-1.0) Aspartate Amino Transf (AST/SGOT) 15 U/L (15-37) 10 U/L (15-37) Alanine Aminotransferase (ALT/SGPT) 14 U/L (16-63) 11 U/L (16-63) Alkaline Phosphatase 98 U/L (46-116) 85 U/L (46-116) Troponin I Quantitative < 0.017 ng/mL (0.000-0.055) FO-Jnm-T-Type Natriuretic Peptide 35 pg/mL (0-124) Total Protein 8.2 g/dL (6.4-8.2) 7.0 g/dL (6.4-8.2) Albumin 3.2 g/dL (3.4-5.0) 2.7 g/dL (3.4-5.0) Albumin/Globulin Ratio 0.6 (1.0-1.7) 0.6 (1.0-1.7) Coronavirus (PCR) Not detected (Not Detected) Laboratory Tests Test 02/07/20 23:25 02/08/20 03:20 Coronavirus (PCR) Not detected (Not Detected) White Blood Count 9.6 x10^3/uL (4.0-11.0) Red Blood Count 3.63 x10^6/uL (4.30-5.70) Hemoglobin 9.7 g/dL (13.0-17.5) Hematocrit 29.7 % (39.0-53.0) Mean Corpuscular Volume 82 fL (79-100) Mean Corpuscular Hemoglobin 27 pg (25-35) Mean Corpuscular Hemoglobin Concent 33 g/dL (31-37) Red Cell Distribution Width 15.5 % (11.5-14.5) Platelet Count 328 x10^3/uL (140-400) Neutrophils (%) (Auto) 64 % (31-73) Lymphocytes (%) (Auto) 18 % (24-48) Monocytes (%) (Auto) 10 % (0-9) Eosinophils (%) (Auto) 7 % (0-3) Basophils (%) (Auto) 1 % (0-3) Neutrophils # (Auto) 6.1 x10^3/uL (1.8-7.7) Lymphocytes # (Auto) 1.7 x10^3/uL (1.0-4.8) Monocytes # (Auto) 1.0 x10^3/uL (0.0-1.1) Eosinophils # (Auto) 0.7 x10^3/uL (0.0-0.7) Basophils # (Auto) 0.1 x10^3/uL (0.0-0.2) Sodium Level 142 mmol/L (136-145) Potassium Level 3.9 mmol/L (3.5-5.1) Chloride Level 107 mmol/L (98-107) Carbon Dioxide Level 28 mmol/L (21-32) Anion Gap 7 (6-14) Blood Urea Nitrogen 11 mg/dL (8-26) Creatinine 0.9 mg/dL (0.7-1.3) Estimated GFR (Cockcroft-Gault) 106.0 BUN/Creatinine Ratio 12 (6-20) Glucose Level 121 mg/dL (70-99) Calcium Level 7.9 mg/dL (8.5-10.1) Total Bilirubin 0.3 mg/dL (0.2-1.0) Aspartate Amino Transf (AST/SGOT) 10 U/L (15-37) Alanine Aminotransferase (ALT/SGPT) 11 U/L (16-63) Alkaline Phosphatase 85 U/L (46-116) Total Protein 7.0 g/dL (6.4-8.2) Albumin 2.7 g/dL (3.4-5.0) Albumin/Globulin Ratio 0.6 (1.0-1.7) Images Images Reviewed CT chest, abdomen and pelvis Assessment/Plan Assessment/Plan Assessment: Right lung mass Hemoptysis Tobacco use Suspected COPD Recommendations: -Reviewed CT CAP. Discussed suspicion for lung cancer with the patient. -Agree with biopsy. As mentioned by Dr Hansen, would consider bx of subpleural lesion -Will follow-up on histology -Agree with Rad-Onc consult -Will plan PET and MRI after histology is obtained -Will arrange follow-up in my office based on results of biopsy Rafael Wiggins MD Hem-Onc Ph [phone] SHERON WIGGINS MD Feb 08, 2020 21:45
[2020-02-08 23:15] VITALS: BP 114/72
[2020-02-09] VITALS (20 sets, daily range): BP systolic 105–140; BP diastolic 65–90
[2020-02-09] MEDS ORDERED: LIDOCAINE WITH 8.4% SOD BICARB 3 ML DISP.SYRIN. ONE (08:52)
[2020-02-09] MEDS ORDERED: MIDAZOLAM HCL/PF 2 MG/2 ML VIAL. ONE (09:01)
[2020-02-09] MEDS ORDERED: fentaNYL PF VIAL 100 MCG/2 ML VIAL ONE (09:01)
[2020-02-09] MEDS ORDERED: LIDOCAINE WITH 8.4% SOD BICARB 3 ML DISP.SYRIN. IJ ONE (09:15)
[2020-02-09] MEDS ORDERED: fentaNYL PF VIAL 100 MCG/2 ML VIAL IV ONE (09:15)
[2020-02-09] MEDS ORDERED: MIDAZOLAM HCL/PF 2 MG/2 ML VIAL. IV ONE (09:15)
--- NOTE | 2020-02-09 09:56 | PDOC ---
[employer] PROGRESS NOTE Date of Service DOS: DATE: 02/09/20 TIME: 09:54 Chief Complaint Chief Complaint A/P: Hemoptysis - likely multifactorial with acute bronchitis and RUL cavitary mass concerning for possible malignancy. Consulted pulm, will order inhalers. F/u COVID 19 test Right upper lobe cavitary mass and also pleural based - likely cause of pain, concerning for malignancy. Given his urgency to want to discharge will d/c IR for biopsy and rad onc and heme onc Extensive ground glass infiltrates - potentially stage 3/4 lung cancer. COVID 19 test pending Likely underlying chronic obstructive pulmonary disease - likely 2/2 smoking. Inhalers prn Emphysema on CT - d/w pulm to have CT abdomen/pelvis to assess for lymphadenopathy or metastatic disease to decrease risk on biopsy Anemia - likely related to chronic disease. will check iron studies. F/u CBC Severe protein calorie malnutrition - likely related to above. 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 An MRI of brain would be appropriate outpatient for further staging if this is a malignancy FEN - General diet PPX - lovenox, will hold for possible biopsy FULL CODE Dispo - inpatient 2 midnights History of Present Illness History of Present Illness Mr Sarah is a 54 yo M w/ PMHx smoker 40+ years who came to ED on 02/07/2020 o vernight c/o sharp right-sided chest pain, which radiates to the back. He rates it 8/10 and progressive over the past 4 days prior to presentation. He has some associated shortness of breath and cough that is blood specked and now with fiorella hemoptysis. He has a 10 pound weight loss, decreased appetite and occasional headaches which are all new. He had no fever, no chills, no sick contacts. With above concerns a CTPA was performed in ED which revealed a large thick wall cavitary lesion in right upper lobe with a pleural based mass as well as right hilar adenopathy extending into the mediastinum. Also noted with extensive ground glass infiltrates in the right lung. There is evidence of extensive emphysema in the right upper lobe and bilateral lungs. BMP within normal limits WBC 9.9, hemoglobin 11, dropped to 9.7 overnight. Platelets 358, albumin 2.7, INR 1.1. EKG sinus tachycardia rate of [address]-T changes COVID 19 swab NEGATIVE. and admitted for further care. Afebrile. With a couple of hemoptysis today. Sputum culture looks like normal respiratory sarita. To IR for pleural-based lesion biopsy today. He does complain of a headache which is new Vitals/I&O Vitals/I&O: Vital Signs Date Time Temp Pulse Resp B/P (MAP) Pulse Ox O2 Delivery O2 Flow Rate FiO2 02/09/20 09:45 92 13 98 Nasal Cannula 2.0 02/09/20 07:00 99.1 135/78 (97) 99.1 I & O 02/08/20 02/08/20 02/09/20 15:00 23:00 07:00 Intake Total 530 ml Output Total 250 ml Balance 280 ml Physical Exam General: Alert, Oriented X3 Heart: Regular rate Abdomen: Normal bowel sounds, Soft, No tenderness, No hepatosplenomegaly Extremities: No clubbing, No cyanosis Skin: No rashes, No breakdown Assessment and Plan Assessmemt and Plan Problems Medical Problems: (1) Chest pain Status: Acute (2) Hemoptysis Status: Acute (3) Lung mass Status: Acute Comment Review of Relevant I have reviewed the following items shahana (where applicable) has been applied. Medications: Current Medications Medications (Trade) Dose Ordered Sig/Ari Route PRN Reason Start Time Stop Time Status Last Admin Dose Admin Iohexol (Omnipaque 240 Mg/ml) 30 ml 1X ONCE PO 02/08/20 11:45 02/08/20 11:46 DC 02/08/20 11:45 Iohexol (Omnipaque 300 Mg/ml) 75 ml 1X ONCE IV 02/08/20 11:45 02/08/20 11:46 DC 02/08/20 11:45 Acetaminophen/ Hydrocodone Bitart (Lortab 5/325) 1 tab PRN Q4HRS PRN PO PAIN 02/08/20 12:00 02/08/20 23:46 Lidocaine HCl (Buffered Lidocaine 1%) 3 ml 1X ONCE IJ 02/09/20 09:15 02/09/20 09:16 DC 02/09/20 09:15 Midazolam HCl (Versed) 2 mg 1X ONCE IV 02/09/20 09:15 02/09/20 09:16 DC 02/09/20 09:15 Fentanyl Citrate (Fentanyl 2ml Vial) 100 mcg 1X ONCE IV 02/09/20 09:15 02/09/20 09:16 DC 02/09/20 09:15 Justicifation of Admission Dx: Justifications for Admission: Justification of Admission Dx: Yes CORINNA CALDERÓN MD Feb 09, 2020 09:56
--- NOTE | 2020-02-09 10:04 | PDOC2 ---
CONSULT Date of Consult Date of Consult DATE: 02/09/20 TIME: 09:30 Reason for Consult Reason for Consult: Lung tumor Referring Physician Referring Physician: Dr Hansen Identification/Chief Complaint Chief Complaint coughing blood Source Source: Chart review, Patient History of Present Illness Reason for Visit: 54-year-old smoker presented to the emergency room with hemoptysis for 2 days, and 4-5days of pressure pain on the right upper chest, worse at night and lying on the right side. CT chest 02/07/2020 showed 9.4 cm right upper lobe thick- walled cavitary mass, 12 cm mediastinal mass just above the right hilum, and numerous enlarged lymph nodes in the mediastinum and right hilum. CT abdomen pelvis on 02/08/2020 showed 0.5 cm indeterminate hypoattenuating lesion in the right hepatic lobe, most likely benign. No other evidence of metastatic disease below the diaphragm. Incidental finding of 5.9 cm left kidney cyst. He had a pulmonology consult. He is scheduled for CT-guided biopsy of the right upper lobe mass later today. He also reports not feeling hungry and 10 pound weight loss. He smokes a pack of cigarettes a day for more than 30 years. Past Medical History Past Medical History None Cardiovascular: No pertinent hx Past Surgical History Past Surgical History: Hernia Repair (bilateral inguinal) Family History Family History: Cancer (Father and paternal aunt had unknown cancer. Mother had COPD.), High Cholestrol, Hypertension Social History Social History He works 3 days at a [employer] and 2 days at [employer] 1 pack per day ALCOHOL: social (beer) Drugs: None Current Problem List Problem List Problems Medical Problems: (1) Chest pain Status: Acute (2) Hemoptysis Status: Acute (3) Lung mass Status: Acute Current Medications Current Medications None as outpatient. Current Medications Aspirin (Aspirin Chewable) 324 mg 1X ONCE PO Last administered on 02/07/20at 16:10; Start 02/07/20 at 16:00; Stop 02/07/20 at 16:01; Status DC Iohexol (Omnipaque 350 Mg/ml) 100 ml 1X ONCE IV Last administered on 02/07/20at 17:25; Start 02/07/20 at 17:15; Stop 02/07/20 at 17:16; Status DC Ondansetron HCl (Zofran) 4 mg PRN Q8HRS PRN IV NAUSEA/VOMITING; Start 02/07/20 at 18:15; Stop 02/07/20 at 21:14; Status DC Fentanyl Citrate (Fentanyl 2ml Vial) 50 mcg PRN Q1HR PRN IV PAIN Last administered on 02/08/20at 03:36; Start 02/07/20 at 18:15 Sodium Chloride 1,000 ml @ 125 mls/hr Q8H IV Last administered on 02/08/20at 09:10; Start 02/07/20 at 18:05; Stop 02/08/20 at 14:08; Status DC Ondansetron HCl (Zofran) 4 mg PRN Q4HRS PRN IV NAUSEA/VOMITING 1ST CHOICE; Start 02/07/20 at 21:15 Guaifenesin (Robitussin Dm) 10 ml PRN Q6HRS PRN PO COUGH Last administered on 02/08/20at 12:08; Start 02/07/20 at 21:15 Enoxaparin Sodium (Lovenox 40mg Syringe) 40 mg QHS SQ Last administered on 02/07/20at 23:19; Start 02/07/20 at 21:30; Stop 02/08/20 at 11:27; Status DC Iohexol (Omnipaque 240 Mg/ml) 30 ml 1X ONCE PO Last administered on 02/08/20at 11:45; Start 02/08/20 at 11:45; Stop 02/08/20 at 11:46; Status DC Iohexol (Omnipaque 300 Mg/ml) 75 ml 1X ONCE IV Last administered on 02/08/20at 11:45; Start 02/08/20 at 11:45; Stop 02/08/20 at 11:46; Status DC Info (CONTRAST GIVEN -- Rx MONITORING) 1 each PRN DAILY PRN MC SEE COMMENTS; Start 02/08/20 at 11:45; Stop 02/10/20 at 11:44 Acetaminophen/ Hydrocodone Bitart (Lortab 5/325) 1 tab PRN Q4HRS PRN PO PAIN Last administered on 02/08/20at 23:46; Start 02/08/20 at 12:00 Lidocaine HCl (Buffered Lidocaine 1%) 3 ml STK-MED ONCE .ROUTE ; Start 02/09/20 at 08:52; Stop 02/09/20 at 08:53; Status DC Midazolam HCl (Versed) 2 mg STK-MED ONCE .ROUTE ; Start 02/09/20 at 09:01; Stop 02/09/20 at 09:01; Status DC Fentanyl Citrate (Fentanyl 2ml Vial) 100 mcg STK-MED ONCE .ROUTE ; Start 02/09/20 at 09:01; Stop 02/09/20 at 09:01; Status DC Lidocaine HCl (Buffered Lidocaine 1%) 3 ml 1X ONCE IJ ; Start 02/09/20 at 09:15; Stop 02/09/20 at 09:16; Status DC Midazolam HCl (Versed) 2 mg 1X ONCE IV ; Start 02/09/20 at 09:15; Stop 02/09/20 at 09:16; Status DC Fentanyl Citrate (Fentanyl 2ml Vial) 100 mcg 1X ONCE IV ; Start 02/09/20 at 09:15; Stop 02/09/20 at 09:16; Status DC Allergies Allergies: Coded Allergies: Penicillins (Verified Allergy, Intermediate, 02/07/20) ROS General: YES: Appetite (decreased) HEENT: YES: Heacaches (new onset episodic headache, associated with 'fleeting vision of shadows'. No diploplia) Respiratory: YES: Cough, Hemoptysis, Shortness of breath Cardiovascular: yes Chest Pain Physical Exam General: Alert, Oriented X3, Cooperative, No acute distress HEENT: Atraumatic, PERRLA, EOMI, Mucous membr. moist/pink, Other (Neck without palpable adenopathy.) Lungs: Other (No breathsound on right apex. No wheezing or crackles on other lung garcia.) Heart: Regular rate, Normal S1, Normal S2, No murmurs Abdomen: Normal bowel sounds, Soft, No tenderness, No hepatosplenomegaly, Other (umbilical hernia) Extremities: No clubbing, No cyanosis, No edema Skin: No rashes, No significant lesion Neuro: Normal speech, Strength at 5/5 X4 ext, Normal tone, Cranial nerves 3-12 NL, Reflexes 2+ Psych/Mental Status: Mental status NL, Mood NL MUSCULOSKELETAL: Full range of motion without pain Vitals VITALS Vital Signs Date Time Temp Pulse Resp B/P (MAP) Pulse Ox O2 Delivery O2 Flow Rate FiO2 02/09/20 08:54 Room Air 02/09/20 07:00 99.1 94 18 135/78 (97) 96 99.1 Labs Labs Laboratory Tests Test 02/07/20 16:24 02/07/20 23:25 02/08/20 03:20 White Blood Count 9.9 x10^3/uL (4.0-11.0) 9.6 x10^3/uL (4.0-11.0) Red Blood Count 4.11 x10^6/uL (4.30-5.70) 3.63 x10^6/uL (4.30-5.70) Hemoglobin 11.0 g/dL (13.0-17.5) 9.7 g/dL (13.0-17.5) Hematocrit 33.7 % (39.0-53.0) 29.7 % (39.0-53.0) Mean Corpuscular Volume 82 fL (79-100) 82 fL (79-100) Mean Corpuscular Hemoglobin 27 pg (25-35) 27 pg (25-35) Mean Corpuscular Hemoglobin Concent 33 g/dL (31-37) 33 g/dL (31-37) Red Cell Distribution Width 15.4 % (11.5-14.5) 15.5 % (11.5-14.5) Platelet Count 358 x10^3/uL (140-400) 328 x10^3/uL (140-400) Neutrophils (%) (Auto) 67 % (31-73) 64 % (31-73) Lymphocytes (%) (Auto) 18 % (24-48) 18 % (24-48) Monocytes (%) (Auto) 8 % (0-9) 10 % (0-9) Eosinophils (%) (Auto) 6 % (0-3) 7 % (0-3) Basophils (%) (Auto) 1 % (0-3) 1 % (0-3) Neutrophils # (Auto) 6.6 x10^3/uL (1.8-7.7) 6.1 x10^3/uL (1.8-7.7) Lymphocytes # (Auto) 1.8 x10^3/uL (1.0-4.8) 1.7 x10^3/uL (1.0-4.8) Monocytes # (Auto) 0.8 x10^3/uL (0.0-1.1) 1.0 x10^3/uL (0.0-1.1) Eosinophils # (Auto) 0.6 x10^3/uL (0.0-0.7) 0.7 x10^3/uL (0.0-0.7) Basophils # (Auto) 0.1 x10^3/uL (0.0-0.2) 0.1 x10^3/uL (0.0-0.2) Prothrombin Time 13.8 SEC (11.7-14.0) Prothromb Time International Ratio 1.1 (0.8-1.1) Sodium Level 140 mmol/L (136-145) 142 mmol/L (136-145) Potassium Level 4.2 mmol/L (3.5-5.1) 3.9 mmol/L (3.5-5.1) Chloride Level 104 mmol/L (98-107) 107 mmol/L (98-107) Carbon Dioxide Level 29 mmol/L (21-32) 28 mmol/L (21-32) Anion Gap 7 (6-14) 7 (6-14) Blood Urea Nitrogen 11 mg/dL (8-26) 11 mg/dL (8-26) Creatinine 1.0 mg/dL (0.7-1.3) 0.9 mg/dL (0.7-1.3) Estimated GFR (Cockcroft-Gault) 93.9 106.0 BUN/Creatinine Ratio 11 (6-20) 12 (6-20) Glucose Level 94 mg/dL (70-99) 121 mg/dL (70-99) Calcium Level 8.4 mg/dL (8.5-10.1) 7.9 mg/dL (8.5-10.1) Total Bilirubin 0.5 mg/dL (0.2-1.0) 0.3 mg/dL (0.2-1.0) Aspartate Amino Transf (AST/SGOT) 15 U/L (15-37) 10 U/L (15-37) Alanine Aminotransferase (ALT/SGPT) 14 U/L (16-63) 11 U/L (16-63) Alkaline Phosphatase 98 U/L (46-116) 85 U/L (46-116) Troponin I Quantitative < 0.017 ng/mL (0.000-0.055) HY-Qih-D-Type Natriuretic Peptide 35 pg/mL (0-124) Total Protein 8.2 g/dL (6.4-8.2) 7.0 g/dL (6.4-8.2) Albumin 3.2 g/dL (3.4-5.0) 2.7 g/dL (3.4-5.0) Albumin/Globulin Ratio 0.6 (1.0-1.7) 0.6 (1.0-1.7) Coronavirus (PCR) Not detected (Not Detected) Assessment/Plan Assessment/Plan 54-year-old -[place] Citizen male who is a smoker presented with large right upper lobe mass and bulky mediastinal lymphadenopathy, concerning for pulmonary malignancy. He is scheduled for CT-guided biopsy of the right upper lobe mass later today. Plan: We discussed that the radiographic findings are most consistent with a primary pulmonary malignancy. We discussed the necessity of tissue diagnosis with CT- guided biopsy. Assuming that this is a pulmonary malignancy, I would consider MRI brain for further staging, especially in this patient with new onset headache. He agreed with further testing as discussed. He agreed to follow-up in 1 week for biopsy results as well as further management. ROBBIN VASQUEZ MD Feb 09, 2020 10:04
--- NOTE | 2020-02-09 10:15 | NUR ---
Per Dr. Hansen no need to reswab pt for COVID.
--- NOTE | 2020-02-09 10:59 | PDOC ---
PULMONARY PROGRESS NOTES DATE: 02/09/20 TIME: 10:56 Subjective NO SOA S/P BX Vitals Vital Signs Date Time Temp Pulse Resp B/P (MAP) Pulse Ox O2 Delivery O2 Flow Rate FiO2 02/09/20 09:45 92 13 98 Nasal Cannula 2.0 02/09/20 07:00 99.1 135/78 (97) 99.1 General: Alert, No acute distress Lungs: Clear Cardiovascular: S1 Abdomen: Soft Neuro Exam: Alert Extremities: No Edema Skin: Warm Labs Laboratory Tests Test 02/07/20 16:24 02/07/20 23:25 02/08/20 03:20 White Blood Count 9.9 x10^3/uL (4.0-11.0) 9.6 x10^3/uL (4.0-11.0) Red Blood Count 4.11 x10^6/uL (4.30-5.70) 3.63 x10^6/uL (4.30-5.70) Hemoglobin 11.0 g/dL (13.0-17.5) 9.7 g/dL (13.0-17.5) Hematocrit 33.7 % (39.0-53.0) 29.7 % (39.0-53.0) Mean Corpuscular Volume 82 fL (79-100) 82 fL (79-100) Mean Corpuscular Hemoglobin 27 pg (25-35) 27 pg (25-35) Mean Corpuscular Hemoglobin Concent 33 g/dL (31-37) 33 g/dL (31-37) Red Cell Distribution Width 15.4 % (11.5-14.5) 15.5 % (11.5-14.5) Platelet Count 358 x10^3/uL (140-400) 328 x10^3/uL (140-400) Neutrophils (%) (Auto) 67 % (31-73) 64 % (31-73) Lymphocytes (%) (Auto) 18 % (24-48) 18 % (24-48) Monocytes (%) (Auto) 8 % (0-9) 10 % (0-9) Eosinophils (%) (Auto) 6 % (0-3) 7 % (0-3) Basophils (%) (Auto) 1 % (0-3) 1 % (0-3) Neutrophils # (Auto) 6.6 x10^3/uL (1.8-7.7) 6.1 x10^3/uL (1.8-7.7) Lymphocytes # (Auto) 1.8 x10^3/uL (1.0-4.8) 1.7 x10^3/uL (1.0-4.8) Monocytes # (Auto) 0.8 x10^3/uL (0.0-1.1) 1.0 x10^3/uL (0.0-1.1) Eosinophils # (Auto) 0.6 x10^3/uL (0.0-0.7) 0.7 x10^3/uL (0.0-0.7) Basophils # (Auto) 0.1 x10^3/uL (0.0-0.2) 0.1 x10^3/uL (0.0-0.2) Prothrombin Time 13.8 SEC (11.7-14.0) Prothromb Time International Ratio 1.1 (0.8-1.1) Sodium Level 140 mmol/L (136-145) 142 mmol/L (136-145) Potassium Level 4.2 mmol/L (3.5-5.1) 3.9 mmol/L (3.5-5.1) Chloride Level 104 mmol/L (98-107) 107 mmol/L (98-107) Carbon Dioxide Level 29 mmol/L (21-32) 28 mmol/L (21-32) Anion Gap 7 (6-14) 7 (6-14) Blood Urea Nitrogen 11 mg/dL (8-26) 11 mg/dL (8-26) Creatinine 1.0 mg/dL (0.7-1.3) 0.9 mg/dL (0.7-1.3) Estimated GFR (Cockcroft-Gault) 93.9 106.0 BUN/Creatinine Ratio 11 (6-20) 12 (6-20) Glucose Level 94 mg/dL (70-99) 121 mg/dL (70-99) Calcium Level 8.4 mg/dL (8.5-10.1) 7.9 mg/dL (8.5-10.1) Total Bilirubin 0.5 mg/dL (0.2-1.0) 0.3 mg/dL (0.2-1.0) Aspartate Amino Transf (AST/SGOT) 15 U/L (15-37) 10 U/L (15-37) Alanine Aminotransferase (ALT/SGPT) 14 U/L (16-63) 11 U/L (16-63) Alkaline Phosphatase 98 U/L (46-116) 85 U/L (46-116) Troponin I Quantitative < 0.017 ng/mL (0.000-0.055) XU-Ach-B-Type Natriuretic Peptide 35 pg/mL (0-124) Total Protein 8.2 g/dL (6.4-8.2) 7.0 g/dL (6.4-8.2) Albumin 3.2 g/dL (3.4-5.0) 2.7 g/dL (3.4-5.0) Albumin/Globulin Ratio 0.6 (1.0-1.7) 0.6 (1.0-1.7) Coronavirus (PCR) Not detected (Not Detected) Impression . 1. Hemoptysis along with right upper lobe cavitary mass and also pleural based mass along with right hilar adenopathy with extension into the mediastinum and extensive ground glass infiltrates. Overall, findings are highly suspicious for stage 3 lung cancer, could be stage 4. 2. Suspected underlying chronic obstructive pulmonary disease from 40 years of tobacco use. 3. Chest wall pain secondary to the pleural based mass. 4. Evidence of bullous emphysema in the right upper lobe. Plan . 1. . S/P biopsy of the pleural based lesion in the right upper lobe 2. CT abdomen and pelvis WITH NO distal lesions, 3. Can resume Lovenox. 4. Medical Oncology and Radiation Oncology rec 5. P.r.n. bronchodilators. 6. Discussed with RN and will follow along with you. TEODORA COTTER MD Feb 09, 2020 10:59
--- NOTE | 2020-02-09 12:20 | RAD ---
02/09/2020 8:01 AM Procedure: CT guided biopsy right upper lung mass Clinical Indication: cavitary lung mass Discussion: The procedure was explained in its entirety to the patient or the patients designated sales representative [employer] by a member of the treatment team, including a discussion of the risks, benefits and commonly accepted alternatives to the procedure, as well as the expected consequences of no therapy whatsoever. Discussion of the risks included, but was not limited to, those that are most frequent and those that are rare but possibly severe or life-threatening, as well as the possibility of unforeseen complications. All elements of maximal sterile barrier technique including the use of a cap, mask, sterile gown, sterile gloves, large sterile sheet, appropriate hand hygiene, and 2% chlorhexidine for cutaneous antisepsis (or acceptable alternative antiseptic per current guidelines) were followed for this procedure. The procedures performed under conscious sedation including continuous cardiopulmonary monitoring via dedicated sedation nurse [id number] sedation time: 15 minutes The anterior chest was prepped and draped using sterile barrier technique. CT demonstrates cavitary mass in the right upper lobe, grossly unchanged from comparison study. 1% lidocaine was administered for local anesthesia. Under intermittent CT guidance is a 17-gauge needle was advanced to mass. Core samples were obtained. [place] removed. Manual pressure was held. Repeat imaging demonstrates no pneumothorax or other immediate complication. Sterile dressings were applied. IMPRESSION: CT-guided biopsy, cavitary right upper lung mass. PQRS Compliance Statement: One or more of the following individualized dose reduction techniques were utilized for this examination: 1. Automated exposure control 2. Adjustment of the mA and/or kV according to patient size 3. Use of iterative reconstruction technique
[2020-02-09] MEDS: HYDROcodone/APAP 5/325MG 1 TAB TABLET PO PRN (14:16)
[2020-02-09] MEDS: fentaNYL PF VIAL 100 MCG/2 ML VIAL IV PRN (16:48)
[2020-02-09] MEDS: IPRATRPIUM/ALBUTEROL 0.5/2.5MG 3 ML NEBU. NEB SCH (19:40)
[2020-02-09] MEDS: guaiFENesin DM 200MG/20MG 10 ML SYRUP PO PRN (21:00)
[2020-02-10 03:00] VITALS: BP 119/66
[2020-02-10 07:00] VITALS: BP 147/77
[2020-02-10] MEDS: IPRATRPIUM/ALBUTEROL 0.5/2.5MG 3 ML NEBU. NEB SCH ×4 (07:06→20:35)
[2020-02-10] MEDS: HYDROcodone/APAP 5/325MG 1 TAB TABLET PO PRN (08:59)
[2020-02-10] MEDS: fentaNYL PF VIAL 100 MCG/2 ML VIAL IV PRN (08:59)
[2020-02-10] MEDS ORDERED: HYDROmorphone 4 MG TABLET PO PRN (09:30)
--- NOTE | 2020-02-10 10:39 | NUR ---
SW following. Reviewed chart and discussed with RN. Pt is a possible discharge home today self-care. No SW needs at discharge.
[2020-02-10 11:00] VITALS: BP 125/67
--- NOTE | 2020-02-10 11:19 | PDOC ---
PULMONARY PROGRESS NOTES DATE: 02/10/20 TIME: 11:15 Subjective NO SOA S/P BX Comments still with hemoptysis Vitals Vital Signs Date Time Temp Pulse Resp B/P (MAP) Pulse Ox O2 Delivery O2 Flow Rate FiO2 02/10/20 11:14 Room Air 02/10/20 09:59 17 02/10/20 07:06 99 02/10/20 07:00 99.0 104 147/77 (100) 99.0 02/10/20 03:00 2.0 General: Alert, No acute distress Lungs: Clear Cardiovascular: S1 Abdomen: Soft Neuro Exam: Alert Extremities: No Edema Skin: Warm Impression . 1. Hemoptysis along with right upper lobe cavitary mass and also pleural based mass along with right hilar adenopathy with extension into the mediastinum and extensive ground glass infiltrates. Overall, findings are highly suspicious for stage 3 lung cancer, could be stage 4. 2. Suspected underlying chronic obstructive pulmonary disease from 40 years of tobacco use. 3. Chest wall pain secondary to the pleural based mass. 4. Evidence of bullous emphysema in the right upper lobe. Plan . 1. . S/P biopsy of the pleural based lesion in the right upper lobe . d/w pathology blood clot and tiny specimen, few atypical cells, special stains P. If non diagnostic, will need Bronch in am 2. CT abdomen and pelvis WITH NO distal lesions, 3. Can resume Lovenox. 4. Medical Oncology and Radiation Oncology rec 5. P.r.n. bronchodilators. 6. Discussed with RN and will follow along with you. TEODORA COTTER MD Feb 10, 2020 11:19
--- NOTE | 2020-02-10 12:04 | PDOC ---
[facility] PROGRESS NOTE Date of Service DOS: DATE: 02/10/20 TIME: 12:04 Chief Complaint Chief Complaint A/P: Hemoptysis - likely multifactorial with acute bronchitis and RUL cavitary mass concerning for possible malignancy. Consulted pulm, will order inhalers. F/u COVID 19 test Right upper lobe cavitary mass and also pleural based - likely cause of pain, concerning for malignancy. Given his urgency to want to discharge will d/c IR for biopsy and rad onc and heme onc Extensive ground glass infiltrates - potentially stage 3/4 lung cancer. COVID 19 test pending Likely underlying chronic obstructive pulmonary disease - likely 2/2 smoking. Inhalers prn Emphysema on CT - d/w pulm to have CT abdomen/pelvis to assess for lymphadenopathy or metastatic disease to decrease risk on biopsy Anemia - likely related to chronic disease. will check iron studies. F/u CBC Severe protein calorie malnutrition - likely related to above. Demand Planning Manager to see Headache - new onset. An MRI of brain would be appropriate outpatient for further staging if this is a malignancy FEN - General diet PPX - lovenox, will hold for possible biopsy FULL CODE Dispo - inpatient 2 midnights History of Present Illness History of Present Illness Mr Sarah is a 54 yo M w/ PMHx smoker 40+ years who came to ED on 02/07/2020 o vernight c/o sharp right-sided chest pain, which radiates to the back. He rates it 8/10 and progressive over the past 4 days prior to presentation. He has some associated shortness of breath and cough that is blood specked and now with fiorella hemoptysis. He has a 10 pound weight loss, decreased appetite and occasional headaches which are all new. He had no fever, no chills, no sick contacts. With above concerns a CTPA was performed in ED which revealed a large thick wall cavitary lesion in right upper lobe with a pleural based mass as well as right hilar adenopathy extending into the mediastinum. Also noted with extensive ground glass infiltrates in the right lung. There is evidence of extensive emphysema in the right upper lobe and bilateral lungs. BMP within normal limits WBC 9.9, hemoglobin 11, dropped to 9.7 overnight. Platelets 358, albumin 2.7, INR 1.1. EKG sinus tachycardia rate of [address]-T changes COVID 19 swab NEGATIVE. and admitted for further care. 02/08: Afebrile. With a couple of hemoptysis today. Sputum culture looks like normal respiratory sarita. To IR for pleural-based lesion biopsy today. He does complain of a headache which is new Afebrile. Still having significant hemoptysis approximately 1/2 cup. His pain is not well controlled with current pain regimen. I discussed addition of a fentanyl patch as this is likely cancer diagnosis. He is amenable to that. He is also amenable to likely bronchoscopy in a.m. with pulmonology tentatively. Vitals/I&O Vitals/I&O: Vital Signs Date Time Temp Pulse Resp B/P (MAP) Pulse Ox O2 Delivery O2 Flow Rate FiO2 02/10/20 11:14 Room Air 02/10/20 11:00 98.5 100 20 125/67 (86) 99 98.5 02/10/20 08:00 2.0 I & O 02/09/20 02/09/20 02/10/20 15:00 23:00 07:00 Intake Total 0 ml 300 ml Output Total 300 ml 400 ml 300 ml Balance -300 ml -100 ml -300 ml Physical Exam General: Alert, Oriented X3, Cooperative, No acute distress Heart: Regular rate, Normal S1, Normal S2, No murmurs Lungs: Clear Abdomen: Normal bowel sounds, Soft, No tenderness, No hepatosplenomegaly, Other (umbilical hernia) Extremities: No clubbing, No cyanosis, No edema Skin: No rashes, No significant lesion Assessment and Plan Assessmemt and Plan Problems Medical Problems: (1) Chest pain Status: Acute (2) Hemoptysis Status: Acute (3) Lung mass Status: Acute Comment Review of Relevant I have reviewed the following items shahana (where applicable) has been applied. Medications: Current Medications Medications (Trade) Dose Ordered Sig/Ari Route PRN Reason Start Time Stop Time Status Last Admin Dose Admin Albuterol/ Ipratropium (Duoneb) 3 ml RTQID NEB 02/09/20 17:00 02/10/20 11:14 Justicifation of Admission Dx: Justifications for Admission: Justification of Admission Dx: Yes CORINNA CALDERÓN MD Feb 10, 2020 12:04
[2020-02-10] MEDS ORDERED: fentaNYL 12MCG/HR PATCH 1 PATCH PATCH.TD72 TD SCH (13:00)
[2020-02-10 15:00] VITALS: BP 111/73
[2020-02-10 19:00] VITALS: BP 94/71
[2020-02-10] MEDS: guaiFENesin DM 200MG/20MG 10 ML SYRUP PO PRN (20:56)
[2020-02-10 22:36] VITALS: BP 106/79
[2020-02-11 03:01] VITALS: BP 106/70
[2020-02-11] MEDS: IPRATRPIUM/ALBUTEROL 0.5/2.5MG 3 ML NEBU. NEB SCH ×3 (07:00→15:42)
--- NOTE | 2020-02-11 07:24 | PDOC ---
[facility] PROGRESS NOTE Date of Service DOS: DATE: 02/11/20 TIME: 07:24 Chief Complaint Chief Complaint A/P: Hemoptysis - likely multifactorial with acute bronchitis and RUL cavitary mass concerning for possible malignancy. Consulted pulm, will order inhalers. F/u COVID 19 test was negative Right upper lobe cavitary mass and also pleural based - likely cause of pain, concerning for malignancy. s/p IR for biopsy and rad onc and heme onc Extensive ground glass infiltrates - potentially stage 3/4 lung cancer. COVID 19 test negative Likely underlying chronic obstructive pulmonary disease - likely 2/2 smoking. Inhalers prn Emphysema on CT - d/w pulm to have CT abdomen/pelvis to assess for lymphadenopathy or metastatic disease to decrease risk on biopsy Anemia - likely related to chronic disease. will check iron studies. F/u CBC Severe protein calorie malnutrition - likely related to above. 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 An MRI of brain would be appropriate outpatient for further staging if this is a malignancy Hemoptysis along with right upper lobe cavitary mass and also pleural based mass along with right hilar adenopathy with extension into the mediastinum and extensive ground glass infiltrates. Overall, findings are highly suspicious for stage 3 lung cancer, could be stage 4. Plan: S/P biopsy of the pleural based lesion in the right upper lobe . d/w pathology . special stains c/w adenocarcinoma CT abdomen and pelvis WITH NO distal lesions, Medical Oncology and Radiation Oncology rec. Needs outpt XRT History of Present Illness History of Present Illness Mr Sarah is a 54 yo M w/ PMHx smoker 40+ years who came to ED on 02/07/2020 overnight c/o sharp right-sided chest pain, which radiates to the back. He rates it 8/10 and progressive over the past 4 days prior to presentation. He has some associated shortness of breath and cough that is blood specked and now with fiorella hemoptysis. He has a 10 pound weight loss, decreased appetite and occasional headaches which are all new. He had no fever, no chills, no sick contacts. With above concerns a CTPA was performed in ED which revealed a large thick wall cavitary lesion in right upper lobe with a pleural based mass as well as right hilar adenopathy extending into the mediastinum. Also noted with extensive virgil und glass infiltrates in the right lung. There is evidence of extensive emphysema in the right upper lobe and bilateral lungs. BMP within normal limits WBC 9.9, hemoglobin 11, dropped to 9.7 overnight. Platelets 358, albumin 2.7, INR 1.1. EKG sinus tachycardia rate of [address]-T changes COVID 19 swab NEGATIVE. and admitted for further care. 02/08: Afebrile. With a couple of hemoptysis today. Sputum culture looks like normal respiratory sarita. To IR for pleural-based lesion biopsy today. He does complain of a headache which is new 02/09: Afebrile. Still having significant hemoptysis approximately 1/2 cup. His pain is not well controlled with current pain regimen. I discussed addition of a fentanyl patch as this is likely cancer diagnosis. It has helped. Pulmonology has d/w pathology special stains show adenocarcinoma on pleural based biopsy. He has appt with Rad Onc and Heme Onc on 02/14/2020 and has been prepped for radiation therapy. He is asking for something for smoking cessation and feels the fentanyl patch + hydrocodone is managing his pain. He has less hemoptysis today and has had a bowel movement. Vitals/I&O Vitals/I&O: Vital Signs Date Time Temp Pulse Resp B/P (MAP) Pulse Ox O2 Delivery O2 Flow Rate FiO2 02/11/20 07:01 98 Room Air 02/11/20 03:01 96.7 88 17 106/70 (82) 2.0 96.7 I & O 02/10/20 02/10/20 02/11/20 15:00 23:00 07:00 Intake Total 360 ml Output Total 200 ml Balance 360 ml -200 ml Physical Exam General: Alert, Oriented X3, Cooperative, No acute distress Heart: Regular rate, Normal S1, Normal S2, No murmurs Lungs: Clear Abdomen: Normal bowel sounds, Soft, No tenderness, No hepatosplenomegaly, Other (umbilical hernia) Extremities: No clubbing, No cyanosis, No edema Skin: No rashes, No significant lesion Assessment and Plan Assessmemt and Plan Problems Medical Problems: (1) Chest pain Status: Acute (2) Hemoptysis Status: Acute (3) Lung mass Status: Acute Comment Review of Relevant I have reviewed the following items shahana (where applicable) has been applied. Medications: Current Medications Medications (Trade) Dose Ordered Sig/Ari Route PRN Reason Start Time Stop Time Status Last Admin Dose Admin Fentanyl (Duragesic 12mcg/ Hr Patch) 1 patch Q3DAYS TD 02/10/20 13:00 02/10/20 13:35 Justicifation of Admission Dx: Justifications for Admission: Justification of Admission Dx: Yes CORINNA CALDERÓN MD Feb 11, 2020 07:24
--- NOTE | 2020-02-11 10:49 | PDOC ---
PULMONARY PROGRESS NOTES DATE: 02/11/20 TIME: 10:46 Subjective NO SOA S/P BX Comments still with hemoptysis Vitals Vital Signs Date Time Temp Pulse Resp B/P (MAP) Pulse Ox O2 Delivery O2 Flow Rate FiO2 02/11/20 07:01 98 Room Air 02/11/20 03:01 96.7 88 17 106/70 (82) 2.0 96.7 General: Alert, No acute distress Lungs: Clear Cardiovascular: S1 Abdomen: Soft Neuro Exam: Alert Extremities: No Edema Skin: Warm Impression . 1. Hemoptysis along with right upper lobe cavitary mass and also pleural based mass along with right hilar adenopathy with extension into the mediastinum and extensive ground glass infiltrates. Overall, findings are highly suspicious for stage 3 lung cancer, could be stage 4. 2. Suspected underlying chronic obstructive pulmonary disease from 40 years of tobacco use. 3. Chest wall pain secondary to the pleural based mass. 4. Evidence of bullous emphysema in the right upper lobe. 5. Hemoptysis due to likely endobronchial lesion Plan . 1. . S/P biopsy of the pleural based lesion in the right upper lobe . d/w pathology . special stains c/w adenocarcinoma 2. CT abdomen and pelvis WITH NO distal lesions, 3. Can resume Lovenox. 4. Medical Oncology and Radiation Oncology rec. Needs outpt XRT 5. P.r.n. bronchodilators. 6. Discussed with RN HE CAN GO HOME TEODORA COTTER MD Feb 11, 2020 10:49
[2020-02-11 11:00] VITALS: BP 104/64
--- NOTE | 2020-02-11 13:45 | PDOC ---
PROGRESS NOTES Date of Service DATE: 02/11/20 TIME: 13:38 Subjective Subjective Kahlil was seen in follow-up today. He was resting in bed. He was recently informed of the diagnosis of adenocarcinoma by Dr. Hill. He has received CT simulation for radiation today. He is coping well with this diagnosis. He has not informed his sister and [id number] for the diagnosis yet. Objective Objective Vital Signs Date Time Temp Pulse Resp B/P (MAP) Pulse Ox O2 Delivery O2 Flow Rate FiO2 02/11/20 11:00 97.8 98 18 104/64 (77) 95 Room Air 97.8 02/11/20 08:00 2.0 Intake and Output 02/11/20 07:00 Intake Total 360 ml Output Total 200 ml Balance 160 ml Tube Feeding 360 ml Output Urine Total 200 ml # Voids 2 Physical Exam Abdomen: Normal bowel sounds, Soft Heart: Regular rate, Normal S1, Normal S2 Extremities: No clubbing General: Alert, Oriented X3, Cooperative HEENT: Atraumatic Lungs: Clear to auscultation MUSCULOSKELETAL: No joint tenderness, No deformity, No swelling Neck: Supple, No JVD Neuro: Normal gait, Strength at 5/5 X4 ext Psych/Mental Status: Mental status NL Skin: No rashes Assessment Assessment Assessment: Lung adenocarcinoma, T4 N2 M0 (stage IIIb) COPD, unknown severity Tobacco use Hemoptysis Plan Plan of Care -I reviewed the patient's pathology report with him -I outlined the natural history and role of staging and defining the treatment approach and non-small cell lung cancer -Given our suspicion for stage III disease at this time, I recommended concurrent chemoradiotherapy -I also recommended obtaining PET/CT and MRI brain to complete staging. These may be completed in the outpatient setting -He will see me in follow-up early next week to plan outpatient therapy. Dr. Hill has seen him for radiation planning and simulation was completed today -After completion of staging, I will be recommending carboplatin and pemetrexed with concurrently administered radiotherapy. Time spent was 40 minutes, more than 50% of which was dedicated to counseling the patient on the results of pathology, role of staging investigations and non- small cell lung cancer and my recommendation for concurrent chemoradiotherapy Rafael Wiggins MD Medical Oncology/Hematology Ph: [phone] Comment Review of Relevant I have reviewed the following items shahana (where applicable) has been applied. Labs Microbiology 02/08/20 Gram Stain Evaluation - Final, Complete 02/08/20 Respiratory Culture - Final, Complete Medications Current Medications Aspirin (Aspirin Chewable) 324 mg 1X ONCE PO Last administered on 02/07/20at 16:10; Start 02/07/20 at 16:00; Stop 02/07/20 at 16:01; Status DC Iohexol (Omnipaque 350 Mg/ml) 100 ml 1X ONCE IV Last administered on 02/07/20at 17:25; Start 02/07/20 at 17:15; Stop 02/07/20 at 17:16; Status DC Ondansetron HCl (Zofran) 4 mg PRN Q8HRS PRN IV NAUSEA/VOMITING; Start 02/07/20 at 18:15; Stop 02/07/20 at 21:14; Status DC Fentanyl Citrate (Fentanyl 2ml Vial) 50 mcg PRN Q1HR PRN IV PAIN Last administered on 02/10/20at 08:59; Start 02/07/20 at 18:15 Sodium Chloride 1,000 ml @ 125 mls/hr Q8H IV Last administered on 02/08/20at 09:10; Start 02/07/20 at 18:05; Stop 02/08/20 at 14:08; Status DC Ondansetron HCl (Zofran) 4 mg PRN Q4HRS PRN IV NAUSEA/VOMITING 1ST CHOICE; Start 02/07/20 at 21:15 Guaifenesin (Robitussin Dm) 10 ml PRN Q6HRS PRN PO COUGH Last administered on 02/10/20at 20:56; Start 02/07/20 at 21:15 Enoxaparin Sodium (Lovenox 40mg Syringe) 40 mg QHS SQ Last administered on 02/07/20at 23:19; Start 02/07/20 at 21:30; Stop 02/08/20 at 11:27; Status DC Iohexol (Omnipaque 240 Mg/ml) 30 ml 1X ONCE PO Last administered on 02/08/20at 11:45; Start 02/08/20 at 11:45; Stop 02/08/20 at 11:46; Status DC Iohexol (Omnipaque 300 Mg/ml) 75 ml 1X ONCE IV Last administered on 02/08/20at 11:45; Start 02/08/20 at 11:45; Stop 02/08/20 at 11:46; Status DC Info (CONTRAST GIVEN -- Rx MONITORING) 1 each PRN DAILY PRN MC SEE COMMENTS; Start 02/08/20 at 11:45; Stop 02/10/20 at 11:44; Status DC Acetaminophen/ Hydrocodone Bitart (Lortab 5/325) 1 tab PRN Q4HRS PRN PO PAIN Last administered on 02/10/20at 08:59; Start 02/08/20 at 12:00 Lidocaine HCl (Buffered Lidocaine 1%) 3 ml STK-MED ONCE .ROUTE ; Start 02/09/20 at 08:52; Stop 02/09/20 at 08:53; Status DC Midazolam HCl (Versed) 2 mg STK-MED ONCE .ROUTE ; Start 02/09/20 at 09:01; Stop 02/09/20 at 09:01; Status DC Fentanyl Citrate (Fentanyl 2ml Vial) 100 mcg STK-MED ONCE .ROUTE ; Start 02/09/20 at 09:01; Stop 02/09/20 at 09:01; Status DC Lidocaine HCl (Buffered Lidocaine 1%) 3 ml 1X ONCE IJ Last administered on 02/09/20at 09:15; Start 02/09/20 at 09:15; Stop 02/09/20 at 09:16; Status DC Midazolam HCl (Versed) 2 mg 1X ONCE IV Last administered on 02/09/20at 09:15; Start 02/09/20 at 09:15; Stop 02/09/20 at 09:16; Status DC Fentanyl Citrate (Fentanyl 2ml Vial) 100 mcg 1X ONCE IV Last administered on 02/09/20at 09:15; Start 02/09/20 at 09:15; Stop 02/09/20 at 09:16; Status DC Albuterol/ Ipratropium (Duoneb) 3 ml RTQID NEB Last administered on 02/11/20at 07:00; Start 02/09/20 at 17:00 Hydromorphone HCl (Dilaudid) 4 mg PRN Q6HRS PRN PO PAIN; Start 02/10/20 at 09:30 Fentanyl (Duragesic 12mcg/ Hr Patch) 1 patch Q3DAYS TD Last administered on 02/10/20at 13:35; Start 02/10/20 at 13:00 Vitals/I & O Vital Sign - Last 24 Hours 02/10/20 02/10/20 02/10/20 02/10/20 15:00 15:32 17:35 19:00 Temp 98.0 96.5 98.0 96.5 Pulse 100 100 Resp 18 19 B/P (MAP) 111/73 (86) 94/71 (79) Pulse Ox 94 98 O2 Delivery Room Air Room Air Room Air Room Air O2 Flow Rate 2.0 2.0 02/10/20 02/10/20 02/10/20 02/11/20 20:05 20:35 22:36 03:01 Temp 98.2 96.7 98.2 96.7 Pulse 96 88 Resp 20 17 B/P (MAP) 106/79 (88) 106/70 (82) Pulse Ox 98 96 98 O2 Delivery Room Air Room Air Room Air Room Air O2 Flow Rate 2.0 2.0 02/11/20 02/11/20 02/11/20 07:01 08:00 11:00 Temp 97.8 97.8 Pulse 98 Resp 18 B/P (MAP) 104/64 (77) Pulse Ox 98 95 O2 Delivery Room Air Room Air Room Air O2 Flow Rate 2.0 Intake and Output 02/10/20 02/10/20 02/11/20 15:00 23:00 07:00 Intake Total 360 ml Output Total 200 ml Balance 360 ml -200 ml Justicifation of Admission Dx: Justifications for Admission: Justification of Admission Dx: Yes SHERON WIGGINS MD Feb 11, 2020 13:45
[2020-02-11 14:37] VITALS: BP 117/69
[2020-02-11] MEDS ORDERED: HYDR-2761 PO (14:49)
[2020-02-11] MEDS ORDERED: FENT1PAT13 TD (14:49)
[2020-02-11] MEDS ORDERED: VARE0.5T PO (14:57)
--- NOTE | 2020-02-11 15:05 | PDOC3 ---
Discharge Summary Visit Information Date of Admission: Feb 07, 2020 Date of Discharge: Feb 11, 2020 Admitting Diagnosis: Hemoptysis Final Diagnosis Problems Medical Problems: (1) Chest pain Status: Acute (2) Hemoptysis Status: Acute (3) Lung mass Status: Acute Brief Hospital Course Allergies Allergies Coded Allergies Type Severity Reaction Last Updated Verified Penicillins Allergy Intermediate 02/07/20 Yes Vital Signs Vital Signs Date Time Temp Pulse Resp B/P (MAP) Pulse Ox O2 Delivery O2 Flow Rate FiO2 02/11/20 14:37 97.8 116 18 117/69 (85) 94 Room Air 97.8 02/11/20 08:00 2.0 Brief Hospital Course Mr Sarah is a 54 yo M w/ PMHx smoker 40+ years who came to ED on 02/07/2020 overnight c/o sharp right-sided chest pain, which radiates to the back. He rates it 8/10 and progressive over the past 4 days prior to presentation. He has some associated shortness of breath and cough that is blood specked and now with fiorella hemoptysis. He has a 10 pound weight loss, decreased appetite and occasional headaches which are all new. He had no fever, no chills, no sick contacts. With above concerns a CTPA was performed in ED which revealed a large thick wall cavitary lesion in right upper lobe with a pleural based mass as well as right hilar adenopathy extending into the mediastinum. Also noted with extensive ground glass infiltrates in the right lung. There is evidence of extensive emphysema in the right upper lobe and bilateral lungs. BMP within normal limits WBC 9.9, hemoglobin 11, dropped to 9.7 overnight. Platelets 358, albumin 2.7, INR 1.1. EKG sinus tachycardia rate of [address]-T changes COVID 19 swab NEGATIVE. and admitted for further care. 02/08: Afebrile. With a couple of hemoptysis today. Sputum culture looks like normal respiratory sarita. To IR for pleural-based lesion biopsy today. He does complain of a headache which is new 02/09: Afebrile. Still having significant hemoptysis approximately 1/2 cup. His pain is not well controlled with current pain regimen. I discussed addition of a fentanyl patch as this is likely cancer diagnosis. It has helped. Pulmonology has d/w pathology special stains show adenocarcinoma on pleural based biopsy. He has appt with Rad Onc and Heme Onc on 02/14/2020 and has been prepped for radiation therapy. He is asking for something for smoking cessation and feels the fentanyl patch + hydrocodone is managing his pain. He has less hemoptysis today and has had a bowel movement. Consults: Pulm, Heme Onc, Rad Onc, IR Problem list: Hemoptysis - likely multifactorial with acute bronchitis and RUL cavitary mass concerning for possible malignancy. Consulted pulm, will order inhalers. F/u COVID 19 test was negative Right upper lobe cavitary mass and also pleural based - likely cause of pain, concerning for malignancy. s/p IR for biopsy and rad onc and heme onc Extensive ground glass infiltrates - potentially stage 3/4 lung cancer. COVID 19 test negative Likely underlying chronic obstructive pulmonary disease - likely 2/2 smoking. Inhalers prn Emphysema on CT - d/w pulm to have CT abdomen/pelvis to assess for lymphadenopathy or metastatic disease to decrease risk on biopsy Anemia - likely related to chronic disease. will check iron studies. F/u CBC Severe protein calorie malnutrition - likely related to above. 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 An MRI of brain would be appropriate outpatient for further staging if this is a malignancy Hemoptysis along with right upper lobe cavitary mass and also pleural based mass along with right hilar adenopathy with extension into the mediastinum and extensive ground glass infiltrates. Overall, findings are highly suspicious for stage 3 lung cancer, could be stage 4. Plan: S/P biopsy of the pleural based lesion in the right upper lobe . d/w pathology . special stains c/w adenocarcinoma CT abdomen and pelvis WITH NO distal lesions, Medical Oncology and Radiation Oncology rec. Needs outpt XRT Greater then 30 minutes spent on d/c home Discharge Information Condition at Discharge: Improved Follow Up: Weeks Disposition/Orders: D/C to Home Scheduled Fentanyl (FENTANYL 12mcg/hr) 1 Each Patch.td72, 1 PATCH TD Q3DAYS for Adenoca rcinoma of lung for 30 Days, #10 Prescribed by: CORINNA CALDERÓN MD on 02/11/20 1450 Varenicline Tartrate (Chantix) 0.5 Mg Tablet, 0.5 MG PO DIRECTED for Smoking cessation for 30 Days, #42 0.5 MG PO DAILY X3 DAY, 0.5 MG PO BID X4 DAY, 1 MG PO BID UNTIL END OF TREATMENT Prescribed by: CORINNA CALDERÓN MD on 02/11/20 1457 Scheduled PRN Hydrocodone Bit/Acetaminophen (Hydrocodone-Apap 5-325 ) 1 Tab Tablet, 1 TAB PO PRN Q6HRS PRN for PAIN for 30 Days, #120 Prescribed by: CORINNA CALDERÓN MD on 02/11/20 1450 Justicifation of Admission Dx: Justifications for Admission: Justification of Admission Dx: Yes CORINNA CALDERÓN MD Feb 11, 2020 15:05
[2020-02-11] MEDS ORDERED: IPRA4AER IH (15:06)
--- NOTE | 2020-02-11 15:08 | PATHOLOGY ---
[facility] Accession Number: [id number] . 01 Material submitted: . lung - RIGHT LUNG MASS BIOPSY. Modifiers: right . 01 Clinical history: . RIGHT LUNG MASS HEMOPTYSIS LUNG MASS . 02 Diagnosis: Right lung mass, needle biopsies: - BLOOD CLOT CONTAINING FOCAL CLUSTERS OF MALIGNANT CELLS HAVING IMMUNOPHENOTYPIC FEATURES SUPPORTIVE OF THE DIAGNOSIS OF ADENOCARCINOMA. SEE COMMENT. (JPM:nacho; 02/11/2020) S 02/11/2020 0847 Local . 02 Comment: Sections of the right lung mass needle biopsy reveal segments of blood clot. There are focal clusters of malignant cells, some of which appear degenerated. The viable tumor cells have ample amounts of eosinophilic cytoplasm, and possess enlarged, rounded to ovoid nuclei containing prominent nucleoi. A panel of immunoperoxidase stains is obtained on block A1 and yields the following results: . AE1/AE3: Tumor cells positive Cytokeratin 7: Tumor cells positive P40: Tumor cells negative TTF-1: Tumor cells positive CK5/6: Tumor cells negative Calretinin: Few tumor cells positive . The morphologic and immunophenotypic findings are supportive of the diagnosis of adenocarcinoma. The case is also examined by Dr. Wilson, who concurs with the diagnosis. The results are reported to Dr. Hansen at 08:35 a.m. on 02/11/2020. (JPM:nacho 02/11/2020) . Special stains performed: Immunoperoxidase stains for AE1/AE3, CK7, p40, TTF-1, CK5/6 and calretinin all on A1. . 02 Electronically signed: . Conner Brasdhaw MD, Pathologist NPI- [id number] . 01 Gross description: . The specimen is received in formalin, labeled "Kahlil Brown, right lung biopsy". Received are multiple fragments of red-brown tissue measuring 0.6 x 0.3 x 0.1 cm in aggregate dimensions. The specimen is filtered and entirely submitted in cassette A1. (CAA; 02/09/2020) QAC/QAC 02/09/2020 1729 Local . 02 Pathologist provided ICD-10: R04.89 . 02 CPT . 312071, T52384, [id number] Specimen Comment: A courtesy copy of this report has been sent to [phone] Specimen Comment: [id number], Specimen Comment: Report sent to ,DR CALDERÓN / DR HANSEN Specimen Comment: Report sent to Performed at: [facility] [address] [facility] [address], [place] [id number] MD Irvin Scruggs MD Phone: [phone] Performed at: 02 [facility] [address] [place], [place] [id number] MD Conner Bradshaw MD Phone: [phone]
--- NOTE | 2020-02-11 15:22 | NUR ---
SW following. Reviewed chart and discussed with RN. Pt to discharge home today self-care. No further SW needs.
--- NOTE | 2020-02-11 16:25 | NUR ---
Discharged to home. Instructions reviewed with pt. He verbalized understanding. Follow ups already scheduled with radiation and oncology.
== END 2020-02-11 16:33 | disposition home or self-care (01) | DRG 180 ==
LOC: ER 15:28 → 5 NORTH 17:53 → 6 SOUTH 22:18
PROVIDERS: ADMIT Internal Medicine; ATTEND Internal Medicine
PROC: 0BBC3ZX Excision of Right Upper Lung Lobe, Percutaneous Approach, Diagnostic (ICD-10-PCS; principal; 2020-02-09)
DX: C34.90 Malignant neoplasm of unspecified part of unspecified bronchus or lung (principal); E43 Unspecified severe protein-calorie malnutrition; J20.9 Acute bronchitis, unspecified; J43.9 Emphysema, unspecified; D63.8 Anemia in other chronic diseases classified elsewhere; F17.210 Nicotine dependence, cigarettes, uncomplicated; Z20.828 Contact with and (suspected) exposure to other viral communicable diseases; N28.1 Cyst of kidney, acquired; Z80.9 Family history of malignant neoplasm, unspecified; Z82.49 Family history of ischemic heart disease and other diseases of the circulatory system; Z82.5 Family history of asthma and other chronic lower respiratory diseases; Z85.118 Personal history of other malignant neoplasm of bronchus and lung; Z79.899 Other long term (current) drug therapy; Z68.23 Body mass index [BMI] 23.0-23.9, adult
CPT/HCPCS: 32405; 36415; 71275; 74177; 77012; 80053; 83880; 84484; 85025; 85610; 87070; 87205; 88305; 88341; 88342; 93005; 94640; 94760; 99152; 99285; J1650; J2250; J3010; J3490; J7030; Q9966; Q9967; G0378; U0003-CS

== ENCOUNTER → 2020-02-18 | Outpatient (CLI) | payer SELFPAY ==
[2020-02-11 14:37] VITALS: BP 117/69
[~2020-02-18] MED LIST: FENT1PAT13 TD; HYDR-2761 PO; IPRA4AER IH; VARE0.5T PO
--- NOTE | 2020-02-18 18:18 | RAD ---
EXAM: PET W CT SKULL TO MIDTHIGH EXAM DATE: 02/18/2020 INDICATION: Lung mass RADIOPHARMACEUTICAL: 13.7 mCi of F-18 Fluorodeoxyglucose (FDG) I.V. via the right antecubital fossa. TECHNIQUE: Patient weight: 175 pounds. Following at least four-hour fasting, the patient's blood glucose was 116 mg/dl. Approximately 1 hour after administration of FDG, overlapping emission scanning was performed from the orbital meatal line through the pelvis. A low-dose CT was performed for attenuation correction purposes and anatomic localization. Fused images of PET and CT were reviewed. Any standardized uptake values (SUV) reported are maximum values within a volume region of interest, expressed in gm/ml. COMPARISON: CT guided lung biopsy of 02/09/2020 FINDINGS: PET: In the head and neck, no abnormal FDG uptake. In the chest, bulky mediastinal adenopathy stretching from the right upper paratracheal uday station (Max SUV 27.2) to the lower right paratracheal lymph nodes (Max SUV 21.5) in the right hilum (max SUV 29.8) is noted. The thick-walled, cavitary mass in the peripheral right upper lobe shows abnormal FDG activity to a max SUV of 24.9. In the abdomen and pelvis, no abnormal FDG uptake is identified. There is a photopenic defect in the midpole medial left kidney, corresponding with an oval hypodense 5.4 cm lesion compatible with a cyst. No abnormal FDG uptake in the osseous structures. CT: In the chest, the lungs show paraseptal predominant emphysema, with bullous emphysematous change in the superior right lung. Extensive groundglass attenuation to the majority of the parenchyma the right upper lobe, medial segment right middle lobe and the superior and medial segments of the right lower lobe is present, suspicious for lepidic tumoral spread. In the abdomen and pelvis, scattered colonic diverticuli are present. No ascites, solid abdominal visceral masses (including adrenal glands) are appreciated on this noncontrast exam, and no fluid collection. No acute or aggressive osseous lesions. IMPRESSION: Findings compatible with locally advanced large right primary pulmonary malignancy, possibly involving all 3 lobes as well as bulky right hilar and mediastinal adenopathy as described. Electronically signed by: Bal Epps MD (02/18/2020 6:15 PM) [id number]
== END ==
LOC: PETSC 10:53
PROVIDERS: ATTEND Internal Medicine Hematology & Oncology
DX: C34.11 Malignant neoplasm of upper lobe, right bronchus or lung (principal); R91.8 Other nonspecific abnormal finding of lung field
CPT/HCPCS: 78815; A9552

== ENCOUNTER → 2020-02-23 | Outpatient (CLI) | payer SELFPAY ==
[2020-02-11 14:37] VITALS: BP 117/69
[~2020-02-23] MED LIST changes: +GADOTERATE 7.5 MMOL/15ML VIAL. IVP ONE
--- NOTE | 2020-02-23 09:35 | RAD ---
MRI Brain with and without contrast History:Non-small cell lung cancer Technique: Multiplanar, multi sequential pre and postcontrast MR imaging was performed of the brain. Comparison: None Findings: There is a 2.9 cm transverse by 2.1 cm AP by 2.6 cm CC focus of parenchymal signal abnormality of the right centrum semiovale. There is adjacent moderate vasogenic edema signified by T2 and FLAIR hyperintense signal about the periphery. Internally, this is of mixed signal characteristics on the T2, FLAIR, and T1 sequences. This is associated with overall diffuse decreased signal on the gradient echo sequence. Inferior margin of the lesion abuts the superior margin of the right lateral ventricle and extends to the lateral margin of the right aspect of the body of corpus callosum. While it is somewhat difficult to accurately assess for enhancement given the inherent T1 shortening, there is degree of and mild peripheral enhancement as well as degree of mild central enhancement, more apparent when comparing the pre and postcontrast sagittal images. There is a small focus of T2 and FLAIR hyperintense signal of the left parietal white matter not associated with significant enhancement. There is patchy mild ethmoid air cell mucosal thickening, very minimal right maxillary sinus mucosal thickening. There is minimal patchy fluid of the left mastoid air cells. Impression: 1. There is approximate 2.6 cm focus of parenchymal mass of the right centrum semiovale, evidence of component of internal hemorrhage. There is adjacent moderate vasogenic edema. While somewhat difficult to accurately assess for enhancement, there apparently is degree of both peripheral and internal enhancement. Primary concern would be for a solitary intracranial metastasis given history, less likely consideration of a large cavernous malformation especially given adjacent edema. Electronically signed by: Bean Fraser MD (02/23/2020 9:32 AM) [place] [id number]
== END | disposition home or self-care (01) ==
LOC: MRI 10:44
PROVIDERS: ATTEND Internal Medicine Hematology & Oncology
DX: C34.11 Malignant neoplasm of upper lobe, right bronchus or lung (principal); R91.8 Other nonspecific abnormal finding of lung field
CPT/HCPCS: 70553; A9575

== ENCOUNTER → 2020-03-06 | Outpatient (CLI) | payer SELFPAY ==
[2020-02-11 14:37] VITALS: BP 117/69
[~2020-03-06] MED LIST changes: -GADOTERATE 7.5 MMOL/15ML VIAL. IVP ONE
[2020-03-06 08:28] LABS: BASO # 0.2 x10^3/uL (0.0-0.2); BASO % 1 % (0-3); EOS % 8 % (0-3); HEMATOCRIT 26.2 % (39.0-53.0); HEMOGLOBIN 8.5 g/dL (13.0-17.5); LYMPH # 2.2 x10^3/uL (1.0-4.8); LYMPH % 16 % (24-48); MEAN CORPUSCULAR HEMOGLOBIN 25 pg (25-35); MEAN CORPUSCULAR HGB CONC 32 g/dL (31-37); MEAN CORPUSCULAR VOLUME 77 fL (79-100); MONO # 1.4 x10^3/uL (0.0-1.1); MONO % 10 % (0-9); NEUT # 8.6 x10^3/uL (1.8-7.7); NEUT % 64 % (31-73); PLATELET COUNT 343 x10^3/uL (140-400); RED BLOOD COUNT 3.43 x10^6/uL (4.30-5.70); RED CELL DISTRIBUTION WIDTH 16.7 % (11.5-14.5); WHITE BLOOD COUNT 13.4 x10^3/uL (4.0-11.0)
[2020-03-06 08:36] LABS: CREATININE 0.9 mg/dL (0.7-1.3); POTASSIUM 3.7 mmol/L (3.5-5.1)
[2020-03-06 08:41] LABS: ALBUMIN 3.1 g/dL (3.4-5.0); ALBUMIN/GLOBULIN RATIO 0.6 (1.0-1.7); TOTAL BILIRUBIN 0.4 mg/dL (0.2-1.0); TOTAL PROTEIN 7.9 g/dL (6.4-8.2)
== END | disposition home or self-care (01) ==
LOC: ONCLAB 08:10
PROVIDERS: ATTEND Internal Medicine Hematology & Oncology
DX: C34.11 Malignant neoplasm of upper lobe, right bronchus or lung (principal)
CPT/HCPCS: 36415; 80053; 85025

== ENCOUNTER → 2020-03-15 | Outpatient (CLI) | payer SELFPAY ==
[2020-03-15 10:09] LABS: BASO % 0 % (0-3); EOS # 0.2 x10^3/uL (0.0-0.7); EOS % 3 % (0-3); HEMATOCRIT 25.8 % (39.0-53.0); HEMOGLOBIN 8.2 g/dL (13.0-17.5); LYMPH % 14 % (24-48); MEAN CORPUSCULAR HEMOGLOBIN 25 pg (25-35); MEAN CORPUSCULAR HGB CONC 32 g/dL (31-37); MEAN CORPUSCULAR VOLUME 77 fL (79-100); MONO # 0.6 x10^3/uL (0.0-1.1); MONO % 9 % (0-9); NEUT # 5.2 x10^3/uL (1.8-7.7); NEUT % 74 % (31-73); PLATELET COUNT 238 x10^3/uL (140-400); RED BLOOD COUNT 3.35 x10^6/uL (4.30-5.70); RED CELL DISTRIBUTION WIDTH 17.5 % (11.5-14.5); WHITE BLOOD COUNT 7.1 x10^3/uL (4.0-11.0)
== END | disposition home or self-care (01) ==
LOC: ONCLAB 09:40
PROVIDERS: ATTEND Internal Medicine Hematology & Oncology
DX: C34.11 Malignant neoplasm of upper lobe, right bronchus or lung (principal)
CPT/HCPCS: 36415; 82607; 82728; 82746; 83540; 83550; 85025

== ENCOUNTER 2020-03-22 09:39 | Outpatient (CLI) | payer OTHER ==
[~2020-03-22] VITALS: Ht 182.9 cm; Wt 83.5 kg
[2020-03-22] VITALS (9 sets, daily range): BP systolic 99–129; BP diastolic 62–71
[2020-03-22] MEDS ORDERED: DEXA4TAB63 PO (09:55)
[2020-03-22] MEDS ORDERED: PANT40TA77 PO (09:55)
[2020-03-22 10:11] LABS: BASO # 0.1 x10^3/uL (0.0-0.2); BASO % 1 % (0-3); EOS # 0.3 x10^3/uL (0.0-0.7); EOS % 4 % (0-3); HEMATOCRIT 27.2 % (39.0-53.0); HEMOGLOBIN 8.6 g/dL (13.0-17.5); LYMPH # 1.1 x10^3/uL (1.0-4.8); LYMPH % 16 % (24-48); MEAN CORPUSCULAR HEMOGLOBIN 24 pg (25-35); MEAN CORPUSCULAR HGB CONC 32 g/dL (31-37); MEAN CORPUSCULAR VOLUME 76 fL (79-100); MONO # 0.9 x10^3/uL (0.0-1.1); MONO % 13 % (0-9); NEUT # 4.7 x10^3/uL (1.8-7.7); NEUT % 66 % (31-73); PLATELET COUNT 265 x10^3/uL (140-400); RED BLOOD COUNT 3.56 x10^6/uL (4.30-5.70); RED CELL DISTRIBUTION WIDTH 18.5 % (11.5-14.5); WHITE BLOOD COUNT 7.1 x10^3/uL (4.0-11.0)
[2020-03-22 10:20] LABS: CALCIUM 9.8 mg/dL (8.5-10.1); GFR 93.9; POTASSIUM 4.8 mmol/L (3.5-5.1); PROTHROMBIN TIME PATIENT 13.1 SEC (11.7-14.0)
[2020-03-22] MEDS ORDERED: HEPARIN PF 500 UNIT/5 ML DISP.SYRIN. IVP ONE ×2 (10:29→11:30)
[2020-03-22] MEDS ORDERED: LIDOCAINE 1%/EPI 1:100,000 20 ML VIAL. ONE (10:29)
[2020-03-22] MEDS ORDERED: fentaNYL PF VIAL 100 MCG/2 ML VIAL ONE (10:58)
[2020-03-22] MEDS ORDERED: MIDAZOLAM HCL/PF 5 MG/5 ML VIAL. ONE (10:58)
[2020-03-22] MEDS ORDERED: VANCOMYCIN 1GM IVPB FOR OMNI 250 ML ONE (11:16)
[2020-03-22] MEDS ORDERED: VANCOMYCIN 1GM IVPB FOR OMNI 250 ML IV ONE (11:30)
[2020-03-22] MEDS ORDERED: MIDAZOLAM HCL/PF 5 MG/5 ML VIAL. IV ONE (11:30)
[2020-03-22] MEDS ORDERED: LIDOCAINE 1%/EPI 1:100,000 20 ML VIAL. INJ ONE (11:30)
[2020-03-22] MEDS ORDERED: fentaNYL PF VIAL 100 MCG/2 ML VIAL IV ONE (11:30)
--- NOTE | 2020-03-22 11:41 | PDOC ---
MODERATE SEDATION ASSESSMENT RISKS/ALTERNATIVES Risks/Alternatives Risks and alternatives of this type of sedation and procedure discussed with: RISK/ALTERNATIVES: Patient H & P ON CHART H & P H & P on chart and reviewed for co-morbid conditions and appropriate labs. H&P ON CHART: Yes STATUS PREG STATUS ASSESSED: Yes MEDS/ALLERGIES REVIEWED Meds/Allergies Reviewed Medications and Allergies including time and route of recently administered narcotics and sedatives. MEDS/ALLERGIES REVIEWED: Yes ASA RATING ASA RATING: II AIRWAY ASSESSMENT Airway Assessment Airway patency, oral function limitations, presence of caps, crowns, dentures, partials, and ability to extend neck assessed. AIRWAY ASSESSMENT: Yes MALLAMPATI SCORE MALLAMPATI SCORE: II PRE-SEDATION ASSESSMENT PRE-SEDATION ASSESSMENT: Yes MADYSON KHANNA MD Mar 22, 2020 11:41
--- NOTE | 2020-03-22 11:42 | PDOC ---
BRIEF OPERATIVE NOTE Pre-Op Diagnosis Lung cancer Post-Op Diagnosis same Procedure Performed Port Surgeon Lester Anesthesia Type: Conscious Sedation Findings left IJ port suitable for use Complications No immediate MADYSON KHANNA MD Mar 22, 2020 11:42
--- NOTE | 2020-03-22 13:42 | RAD ---
Procedure: Port-A-Cath placement Clinical Indication: Adult male with lung cancer requiring chemotherapy Sedation: Conscious sedation was administered with a total intraprocedural [id number] time of 28 minutes. The patient was monitored by a qualified independent observer throughout the time of sedation. Please refer to the medical record for exact doses of medications utilized to achieve moderate sedation. Antibiotics: Antibiotic was administered intravenously within 1 hour of the procedure start time. Exposure: Fluoro Time: 0.3 minutes Images: 1 Contrast: None Sterility: All elements of maximal sterile barrier technique including the use of a cap, mask, sterile gown, sterile gloves, large sterile sheet, appropriate hand hygiene, and 2% chlorhexidine for cutaneous antisepsis (or acceptable alternative antiseptic per current guidelines) were followed for this procedure. Consent: The procedure was explained in its entirety to the patient or the patients designated district representative by a member of the treatment team, including a discussion of the risks, benefits and commonly accepted alternatives to the procedure, as well as the expected consequences of no therapy whatsoever. Discussion of the risks included, but was not limited to, those that are most frequent and those that are rare but possibly severe or life-threatening, as well as the possibility of unforeseen complications. Technique and Findings: Ultrasound interrogation of the left neck revealed patency and compressibility of the internal jugular vein. A hardcopy ultrasound image was recorded as a 21-gauge micropuncture needle was used to gain access to this vessel. The needle was exchanged over a wire for a peel-away sheath. The skin over the ipsilateral anterior chest wall was then copiously anesthetized with 1% lidocaine plus epinephrine, and a small dermatotomy was made. Blunt dissection techniques were used to create a pocket for the port. The port was then tunneled subcutaneously towards the neck dermatotomy then deployed under fluoroscopic guidance through the peel-away sheath such that the distal tip resided in the proximal right atrium. The port was accessed and found to flush and aspirate with ease. The port was packed with heparin. The pocket was copiously irrigated with sterile saline then closed with deep interrupted and running subcuticular 4-0 Vicryl suture. Dermabond was used to close the neck dermatotomy. Complications: No immediate Impression: 1. Ultrasound and fluoroscopic guided placement of a left IJ Port-A-Cath as described.
--- NOTE | 2020-03-22 13:45 | NUR ---
Discharge Note: SAMIA GARCIA Discharge instructions and discharge home medications reviewed with Patient and a copy given. All questions have been answered and understanding verbalized. Dressing to L chest remains clean and dry The following instructions and handouts were given: sedation, incision care, portacath, instruction booklet from port Discontinued lines and drains: Peripheral IV intact. Patient discharged to Home or Self Care with Family Member via Wheelchair CORBY RN Addendum: 03/22/20 at 1358 by FRANKY VAZQUEZ RN Amended: Links added.
== END 2020-03-22 13:45 | disposition home or self-care (01) ==
LOC: INTRAD 09:39
PROVIDERS: ATTEND Internal Medicine Hematology & Oncology
DX: C34.11 Malignant neoplasm of upper lobe, right bronchus or lung (principal); J43.9 Emphysema, unspecified; Z88.0 Allergy status to penicillin; Z79.899 Other long term (current) drug therapy; Z87.891 Personal history of nicotine dependence; Z79.01 Long term (current) use of anticoagulants; Z98.890 Other specified postprocedural states
CPT/HCPCS: 36415; 36561; 76937; 77001; 80048; 85025; 85610; 99152; 99153; C1751; C1892; J1642; J2250; J3010; J3370; J3490

== ENCOUNTER → 2020-03-27 | Outpatient (CLI) | payer SELFPAY ==
[2020-03-22 13:20] VITALS: BP 99/62
[~2020-03-27] MED LIST changes: +DEXA4TAB63 PO; +PANT40TA77 PO
[2020-03-27 10:16] LABS: BASO # 0.1 x10^3/uL (0.0-0.2); BASO % 2 % (0-3); EOS # 0.2 x10^3/uL (0.0-0.7); EOS % 5 % (0-3); HEMATOCRIT 22.5 % (39.0-53.0); HEMOGLOBIN 7.1 g/dL (13.0-17.5); LYMPH # 0.4 x10^3/uL (1.0-4.8); LYMPH % 11 % (24-48); MEAN CORPUSCULAR HEMOGLOBIN 24 pg (25-35); MEAN CORPUSCULAR HGB CONC 32 g/dL (31-37); MEAN CORPUSCULAR VOLUME 77 fL (79-100); MONO # 0.5 x10^3/uL (0.0-1.1); MONO % 16 % (0-9); NEUT # 2.2 x10^3/uL (1.8-7.7); NEUT % 65 % (31-73); PLATELET COUNT 265 x10^3/uL (140-400); RED BLOOD COUNT 2.91 x10^6/uL (4.30-5.70); RED CELL DISTRIBUTION WIDTH 20.5 % (11.5-14.5); WHITE BLOOD COUNT 3.4 x10^3/uL (4.0-11.0)
[2020-03-27 10:28] LABS: CALCIUM 8.7 mg/dL (8.5-10.1); CREATININE 0.8 mg/dL (0.7-1.3); GFR 121.4
[2020-03-27 10:33] LABS: ALBUMIN 2.6 g/dL (3.4-5.0); ALBUMIN/GLOBULIN RATIO 0.5 (1.0-1.7); TOTAL BILIRUBIN 1.4 mg/dL (0.2-1.0); TOTAL PROTEIN 7.4 g/dL (6.4-8.2)
== END ==
LOC: ONCLAB 08:00
PROVIDERS: ATTEND Internal Medicine Hematology & Oncology
DX: C34.11 Malignant neoplasm of upper lobe, right bronchus or lung (principal)
CPT/HCPCS: 36415; 80053; 82248; 83010; 83615; 85025; 86704; 86706; 86803; 87340

== ENCOUNTER → 2020-04-06 | Outpatient (CLI) | payer OTHER ==
[2020-03-22 13:20] VITALS: BP 99/62
--- NOTE | 2020-04-06 11:39 | RAD ---
Right upper quadrant abdominal ultrasound without comparison for non-small cell lung cancer, abnormal LFTs. Technique and findings: Real-time grayscale and color Doppler evaluation of the abdominal organs is performed. IVC is patent. Visualized abdominal aorta is nonaneurysmal. The patient was portions the pancreas are normal. The liver is normal in size, contour, and echogenicity. No intra or extrahepatic biliary ductal dilatation. Common bile duct measures 5 mm in diameter. At the dome of the liver, there is a 7 mm simple cyst for which no additional follow-up is required. No other hepatic parenchymal abnormalities. Gallbladder is partially fluid distended and grossly unremarkable with no stones or sludge, and no sonographic Weir sign elicited. The right kidney measures 13.0 x 5.5 cm and is free of any hydronephrosis or focal parenchymal abnormality. No free or loculated fluid collections are seen. No masses of the right upper quadrant are evident. IMPRESSION: 1. Small benign hepatic cysts for which no additional follow-up is required. 2. Otherwise normal ultrasound of the right upper quadrant. Electronically signed by: Calvin Batista MD (04/06/2020 11:36 AM) [id number]
== END ==
LOC: US 09:30
PROVIDERS: ATTEND Internal Medicine Hematology & Oncology
DX: C34.11 Malignant neoplasm of upper lobe, right bronchus or lung (principal); R94.5 Abnormal results of liver function studies; K76.89 Other specified diseases of liver
CPT/HCPCS: 76705

== ENCOUNTER → 2020-04-17 | Outpatient (CLI) | payer OTHER ==
[2020-03-22 13:20] VITALS: BP 99/62
[2020-04-17 10:01] LABS: BASO % 1 % (0-3); EOS # 0.1 x10^3/uL (0.0-0.7); EOS % 2 % (0-3); HEMATOCRIT 27.2 % (39.0-53.0); HEMOGLOBIN 8.6 g/dL (13.0-17.5); LYMPH # 0.2 x10^3/uL (1.0-4.8); LYMPH % 6 % (24-48); MEAN CORPUSCULAR HEMOGLOBIN 25 pg (25-35); MEAN CORPUSCULAR HGB CONC 32 g/dL (31-37); MEAN CORPUSCULAR VOLUME 79 fL (79-100); MONO # 0.8 x10^3/uL (0.0-1.1); MONO % 21 % (0-9); NEUT # 2.7 x10^3/uL (1.8-7.7); NEUT % 71 % (31-73); PLATELET COUNT 203 x10^3/uL (140-400); RED BLOOD COUNT 3.46 x10^6/uL (4.30-5.70); RED CELL DISTRIBUTION WIDTH 23.4 % (11.5-14.5); WHITE BLOOD COUNT 3.8 x10^3/uL (4.0-11.0)
[2020-04-17 10:26] LABS: CALCIUM 9.3 mg/dL (8.5-10.1); CREATININE 0.9 mg/dL (0.7-1.3); POTASSIUM 3.7 mmol/L (3.5-5.1)
[2020-04-17 10:32] LABS: ALBUMIN/GLOBULIN RATIO 0.6 (1.0-1.7); TOTAL BILIRUBIN 0.3 mg/dL (0.2-1.0)
[2020-04-17 19:44] LABS: % BASOS 2 % (0-3); % EOS 3 % (0-5); % LYMPHS 9 % (24-48); % METAS 1 % (0-0); % MONOS 11 % (0-10); % SEGS 74 % (35-66); PLT ESTIMATE ADEQUATE (ADEQUATE); POLYCHROMASIA OCCASIONAL
[2020-04-17 19:46] LABS: ANISOCYTOSIS MOD; HYPOCHROMIA SLIGHT; OVALOCYTES OCC; POIKILOCYTOSIS SLIGHT; SCHISTOCYTES FEW
[2020-04-17 19:47] LABS: MICROCYTOSIS SLIGHT; TARGET CELLS OCC
[2020-04-18 00:08] LABS: HEMOGLOBIN A1C 5.1 % (4.8-5.6)
== END ==
LOC: ONCLAB 09:45
PROVIDERS: ATTEND Internal Medicine Hematology & Oncology
DX: C34.11 Malignant neoplasm of upper lobe, right bronchus or lung (principal)
CPT/HCPCS: 80053; 80061; 82306; 82784; 82977; 83036; 83520; 84165; 84443; 85007; 85025; 86334

== ENCOUNTER → 2020-05-08 | Outpatient (CLI) | payer OTHER ==
[2020-03-22 13:20] VITALS: BP 99/62
[2020-05-08 09:55] LABS: BASO % 1 % (0-3); EOS # 0.1 x10^3/uL (0.0-0.7); EOS % 2 % (0-3); HEMATOCRIT 29.5 % (39.0-53.0); HEMOGLOBIN 9.6 g/dL (13.0-17.5); LYMPH # 0.2 x10^3/uL (1.0-4.8); LYMPH % 5 % (24-48); MEAN CORPUSCULAR HEMOGLOBIN 25 pg (25-35); MEAN CORPUSCULAR HGB CONC 33 g/dL (31-37); MEAN CORPUSCULAR VOLUME 77 fL (79-100); MONO # 0.7 x10^3/uL (0.0-1.1); MONO % 17 % (0-9); NEUT # 3.4 x10^3/uL (1.8-7.7); NEUT % 76 % (31-73); PLATELET COUNT 165 x10^3/uL (140-400); RED BLOOD COUNT 3.81 x10^6/uL (4.30-5.70); RED CELL DISTRIBUTION WIDTH 23.3 % (11.5-14.5); WHITE BLOOD COUNT 4.5 x10^3/uL (4.0-11.0)
[2020-05-08 10:17] LABS: CALCIUM 9.2 mg/dL (8.5-10.1); CREATININE 1.3 mg/dL (0.7-1.3); GFR 69.3; POTASSIUM 4.1 mmol/L (3.5-5.1)
[2020-05-08 10:21] LABS: ALBUMIN 2.8 g/dL (3.4-5.0); ALBUMIN/GLOBULIN RATIO 0.7 (1.0-1.7); MAGNESIUM 1.8 mg/dL (1.8-2.4); TOTAL BILIRUBIN 0.3 mg/dL (0.2-1.0); TOTAL PROTEIN 6.8 g/dL (6.4-8.2)
[2020-05-08 10:28] LABS: FREE T4 1.35 ng/dL (0.76-1.46); THYROID STIM HORMONE (TSH) 1.071 uIU/mL (0.358-3.74)
== END ==
LOC: ONCLAB 09:17
PROVIDERS: ATTEND Internal Medicine Hematology & Oncology
DX: C34.11 Malignant neoplasm of upper lobe, right bronchus or lung (principal); Z79.899 Other long term (current) drug therapy
CPT/HCPCS: 36415; 80053; 82378; 83615; 83735; 84439; 84443; 85025; 85045

== ENCOUNTER → 2020-05-25 | Outpatient (CLI) | payer OTHER ==
[2020-03-22 13:20] VITALS: BP 99/62
[2020-05-25 11:29] LABS: BASO % 0 % (0-3); EOS # 0.1 x10^3/uL (0.0-0.7); EOS % 1 % (0-3); HEMATOCRIT 26.7 % (39.0-53.0); HEMOGLOBIN 8.5 g/dL (13.0-17.5); LYMPH # 0.1 x10^3/uL (1.0-4.8); LYMPH % 2 % (24-48); MEAN CORPUSCULAR HEMOGLOBIN 25 pg (25-35); MEAN CORPUSCULAR HGB CONC 32 g/dL (31-37); MEAN CORPUSCULAR VOLUME 79 fL (79-100); MONO # 2.1 x10^3/uL (0.0-1.1); MONO % 32 % (0-9); NEUT # 4.3 x10^3/uL (1.8-7.7); NEUT % 66 % (31-73); PLATELET COUNT 130 x10^3/uL (140-400); RED BLOOD COUNT 3.38 x10^6/uL (4.30-5.70); WHITE BLOOD COUNT 6.6 x10^3/uL (4.0-11.0)
[2020-05-25 12:15] LABS: CALCIUM 9.2 mg/dL (8.5-10.1); CREATININE 3.2 mg/dL (0.7-1.3); GFR 24.5; POTASSIUM 4.4 mmol/L (3.5-5.1)
[2020-05-25 12:21] LABS: ALBUMIN 2.1 g/dL (3.4-5.0); ALBUMIN/GLOBULIN RATIO 0.4 (1.0-1.7); TOTAL BILIRUBIN 0.4 mg/dL (0.2-1.0); TOTAL PROTEIN 6.9 g/dL (6.4-8.2)
[2020-05-25 13:03] LABS: % BANDS 12 % (0-9); % EOS 1 % (0-5); % LYMPHS 3 % (24-48); % MONOS 25 % (0-10); % SEGS 59 % (35-66)
[2020-05-25 13:06] LABS: PLT ESTIMATE DECREASED (ADEQUATE)
[2020-05-25 13:07] LABS: ANISOCYTOSIS SLIGHT; BIZZARE CELLS OCC; OVALOCYTES OCC; POLYCHROMASIA SLIGHT
== END ==
LOC: ONCLAB 11:11
PROVIDERS: ATTEND Internal Medicine Hematology & Oncology
DX: C34.11 Malignant neoplasm of upper lobe, right bronchus or lung (principal)
CPT/HCPCS: 36415; 80053; 85007; 85025

== ENCOUNTER → 2020-05-26 | Outpatient (CLI) | payer OTHER ==
[2020-03-22 13:20] VITALS: BP 99/62
[2020-05-26 13:12] LABS: BASO % 0 % (0-3); EOS % 1 % (0-3); HEMATOCRIT 22.7 % (39.0-53.0); HEMOGLOBIN 7.3 g/dL (13.0-17.5); LYMPH # 0.1 x10^3/uL (1.0-4.8); LYMPH % 2 % (24-48); MEAN CORPUSCULAR HEMOGLOBIN 25 pg (25-35); MEAN CORPUSCULAR HGB CONC 32 g/dL (31-37); MEAN CORPUSCULAR VOLUME 79 fL (79-100); MONO # 1.9 x10^3/uL (0.0-1.1); MONO % 30 % (0-9); NEUT # 4.2 x10^3/uL (1.8-7.7); NEUT % 68 % (31-73); PLATELET COUNT 153 x10^3/uL (140-400); RED BLOOD COUNT 2.89 x10^6/uL (4.30-5.70); RED CELL DISTRIBUTION WIDTH 22.8 % (11.5-14.5); WHITE BLOOD COUNT 6.3 x10^3/uL (4.0-11.0)
[2020-05-26 13:41] LABS: CALCIUM 8.8 mg/dL (8.5-10.1); CREATININE 3.9 mg/dL (0.7-1.3); GFR 19.5; POTASSIUM 4.5 mmol/L (3.5-5.1)
[2020-05-26 13:51] LABS: ALBUMIN/GLOBULIN RATIO 0.4 (1.0-1.7); TOTAL BILIRUBIN 0.4 mg/dL (0.2-1.0); TOTAL PROTEIN 6.7 g/dL (6.4-8.2)
== END ==
LOC: ONCLAB 12:49
PROVIDERS: ATTEND Internal Medicine Hematology & Oncology
DX: C34.11 Malignant neoplasm of upper lobe, right bronchus or lung (principal)
CPT/HCPCS: 36415; 80053; 85025

== ENCOUNTER → 2020-05-26 | Outpatient (CLI) | payer OTHER ==
[2020-03-22 13:20] VITALS: BP 99/62
--- NOTE | 2020-05-25 15:53 | RAD ---
KUB without comparison for pain due to neoplastic disease, history of non-small cell lung cancer with brain metastasis. FINDINGS: There is scattered abdominal bowel gas in a nonobstructive pattern, though there is a paucity of gas and stool within the descending colon and rectum. No significant osseous abnormalities are identified. IMPRESSION: 1. Nonobstructive nonspecific bowel gas pattern. Electronically signed by: Calvin Batista MD (05/25/2020 3:49 PM) [id number]
--- NOTE | 2020-05-26 17:19 | RAD ---
EXAM: CT Chest, Abdomen, and Pelvis without IV contrast INDICATION: Reason: NON-SMALL CELL LUNG CA / Spl. Instructions: PO ONLY PER OFFICE / History: 54-year-old man with known lung cancer undergoing chemotherapy and radiation therapy presents with continued abdominal pain and worsening renal function despite outpatient IV hydration. TECHNIQUE: Multi-detector row CT images were acquired from the thoracic inlet through the ischial tuberosities without the use of IV contrast. Sagittal and coronal images were acquired from the transaxial data. All CT scans performed at this facility utilize dose optimization techniques as appropriate to the exam, including the following: Automated exposure control and adjustment of the mA and/or KV according to patient size (this includes techniques or standardized protocols for targeted exams where dose is indication/reason for exam). ORAL CONTRAST: administered COMPARISON: CT chest with IV contrast of 02/07/[address] abdomen and pelvis with IV and oral contrast of 02/08/2020 FINDINGS: The absence of IV contrast limits evaluation of soft tissue pathology. CHEST: CARDIOVASCULAR: Right tunneled chest port terminates near the cavoatrial junction. Normal heart size without pericardial effusion. Normal caliber thoracic aorta. No evidence of an intramural hematoma. MEDIASTINUM & JODI: Mediastinal adenopathy persists but appears to have improved in the interval as demonstrated by decrease in size of paratracheal lymph nodes previously measuring 4.4 cm, now measuring 1.4 cm (axial image 20 of series 2). Bulky right hilar adenopathy has also improved as demonstrated by less soft tissue around the distal right mainstem bronchus, comparing image 30 of series 2 this exam with image 91 of series 3 on the prior study. LUNGS: The left lung again shows centrilobular emphysema and noncalcified 4 mm nodule in the periphery of the left upper lobe, unchanged in the interval. Slight decrease in nodularity in the peripheral left lower lobe (image 37 of series 2 compared with image 113 of series 3 on the prior). The right lung however is nearly completely atelectatic. There is residual aerated right middle lobe and upper lobe lung tissue but the majority of the right lower lobe is collapsed. This obscures the residual of the patient's right upper lobe lung mass which has decreased in bulk in the interval. PLEURAL SPACE: A large, loculated right pleural effusion occupies the majority of the right hemithorax and may be exerting some mass effect on the mediastinal structures as evidenced by a concave lateral contour to the suprahepatic IVC. OSSEOUS & SOFT TISSUE: Unremarkable ABDOMEN/PELVIS: LIVER: Unchanged subcentimeter hypodensity in the periphery of the right hepatic lobe measuring approximately 5 mm (image 42 series 4). Otherwise unremarkable liver on noncontrast CT. BILIARY SYSTEM: Gallbladder is unremarkable. Bile ducts are not dilated. PANCREAS: Unremarkable SPLEEN: Unremarkable ADRENALS: New bilobed nodular fullness to the left adrenal gland is noted (image 42 series 4 this exam) KIDNEYS & URETERS: No evidence of hydronephrosis or hydroureter and no radiopaque stones in the urinary tract are identified. Large 5.9 cm cyst in the midpole left kidney is redemonstrated but there is questionable new soft tissue density in the dorsal aspect of this cyst (image 49 of series 4) that may be new in the interval but would be better evaluated on MRI or contrast enhanced CT or MRI. There is a new 1 cm nodule at the periphery of the superior pole right kidney (image 49 series 4). BLADDER: Unremarkable REPRODUCTIVE ORGANS: Prostate mildly enlarged measuring 5 cm. GASTROINTESTINAL: The bowel is largely collapsed. The oral contrast ingested is mostly in the stomach with relatively poor distal opacification of the bowel, some contrast reaching the jejunum. There are no dilated, fluid-filled bowel loops suggestive of obstruction. Some gas and fluid is present in the right and transverse colon but the distal colon is collapsed. No significant fecal debris appreciated in the rectum. Appendix is not well seen. No findings of acute appendicitis are present. MESENTERY/PERITONEUM/RETROPERITONEUM: Interval large amount of ascites with exuberant mesenteric edema and stranding in the greater omentum as well as nodularity in the small bowel mesentery, compatible with edema and large ascites. Tumoral deposits are difficult to exclude. There is a new 1.5 cm mass in the retroperitoneal fat dorsal to the descending colon (image 60 of series 4). This could represent an entirely new mass or interval enlargement of a 3 mm nodule from the previous study (image 38 of series 2 on the prior abdomen CT). No free air. No discrete, organized fluid collections. VASCULAR: Unremarkable LYMPH NODES: No bulky adenopathy. Mesenteric adenopathy is difficult to exclude. OSSEOUS & SOFT TISSUES: Fat-containing umbilical hernia. IMPRESSION: 1. Positive treatment response of the primary tumor in the right upper lobe and in the mediastinal and right hilar nodes but interval development of a large right pleural effusion resulting in mass effect with severe atelectasis of the right lung. 2. Interval development of a large amount of ascites and extensive intraperitoneal soft tissue stranding and nodularity as well as new retroperitoneal nodules and masses that are of concern for abdominal disease progression. 3. No evidence of urinary tract obstruction. 4. No evidence of constipation. Discussed with Dr. Marin by telephone at 4:[address] Aguillon at 4:28 PM on 05/26/2020. Electronically signed by: Bal Epps MD (05/26/2020 5:16 PM) [id number]
--- NOTE | 2020-05-26 17:34 | RAD ---
EXAM: MRI Brain without IV contrast INDICATION: Reason: BRAIN METASTASIS. Hx LUNG CANCER / Spl. Instructions: / History: Patient has acute renal failure. TECHNIQUE: Sagittal and axial T1-w and axial T2-w, FLAIR, GRE, coronal T2-w, and diffusion-w images of the brain with ADC maps without IV contrast. COMPARISON: MRI brain without IV contrast of 02/23/2020 FINDINGS: BRAIN PARENCHYMA: Right centrum semiovale mass shows interval decrease in size now measuring 1.2 cm AP by 1.9 cm oblique transverse by 1.4 cm oblique craniocaudal dimensions. It shows a hemosiderin ring and internal restricted diffusion and T1 shortening, compatible with internal hemorrhage. There is interval decrease in perilesional vasogenic edema with less mass effect. At the comparable levels on the prior study, this mass previously measured 1.9 x 2.8 x 2.4 cm. Gradient echo sequence shows a new 4 mm focus of susceptibility artifact in the left parietal lobe (image 20 series 9), of potential concern for new metastatic deposit. It is not as well seen on other sequences. VENTRICLES & EXTRA-AXIAL SPACES: Ventricles are within normal limits. Basilar cisterns are patent. No abnormal extra-axial fluid or mass. VESSELS: Normal signal voids in the larger intracranial vessels. ORBITS: Orbital contents are unremarkable. SINUSES: Paranasal sinuses are clear. Tympanic cavities and mastoid air cells are clear. OSSEOUS & SOFT TISSUES: Ovoid 1 cm T1 isointense lesion in the left mastoid bone (image 5 of series 8) is indeterminate but unchanged. IMPRESSION: 1. Positive treatment response in the dominant right frontal lobe mass in the centrum semiovale, now measuring 1.2 x 1.9 x 1.4 cm and compatible with a hemorrhagic metastatic deposit. 2. New left parietal 4 mm focus of susceptibility artifact of concern for an additional metastatic deposit. When clinically feasible, follow-up imaging with MRI brain with IV contrast could be pursued in further evaluation. Discussed with Dr. Marin by telephone at 4:20 PM on 05/26/2020 Electronically signed by: Bal Epps MD (05/26/2020 5:31 PM) [id number]
== END ==
LOC: CT 13:50
PROVIDERS: ATTEND Internal Medicine Hematology & Oncology
DX: C34.11 Malignant neoplasm of upper lobe, right bronchus or lung (principal); J98.11 Atelectasis; J43.2 Centrilobular emphysema; R91.1 Solitary pulmonary nodule; J90 Pleural effusion, not elsewhere classified; N40.0 Benign prostatic hyperplasia without lower urinary tract symptoms
CPT/HCPCS: 70551; 71250; 74018; 74176